=== PATIENT | female | born 1945 | race Caucasian/White ===

== ENCOUNTER 2016-06-18 18:11 | Inpatient (IN) | payer MEDICARE, BC ==
--- NOTE | ~2016-06-18 | EGD ---
EGD REPORT [facility] [address] [address] NAME: JACK ALVAREZ : [birth year] STATUS : ADM IN PAT#: [id number] AGE: 71 ADM/REG DATE : 06/18/16 MR#: [id number] REPORT SERV DATE: 06/30/16 DICTATED BY: BAKARI BECKHAM DATE: 06/30/16 REPORT STATUS : Draft TRANSCRIBED BY: IATARH [facility] DATE: 06/30/16 Endoscopy Center Patient Name: Jack Alvarez Date of : 1945 Attending MD: BAKARI BECKHAM MD Procedure Date No Time: 06/30/2016 Procedure: Upper GI endoscopy Indications: Recent gastrointestinal bleeding Referring MD: ROSAS WILLETT MD Medicines: Monitored Anesthesia Care Complications: No immediate complications. Estimated blood loss: Minimal. Procedure: Pre-Anesthesia Assessment: - ASA Grade Assessment: III - A patient with severe systemic disease. After obtaining informed consent, the endoscope was passed under direct vision. Throughout the procedure, the patient's blood pressure, pulse, and oxygen saturations were monitored continuously. The GIF [id number] was introduced through the mouth, and advanced to the second part of duodenum. The upper GI endoscopy was accomplished without difficulty. The patient tolerated the procedure well. Findings: The examined esophagus was normal. The Z-line was regular and was found 38 cm from the incisors. Multiple medium semi-sessile polyps with no bleeding and no stigmata of recent bleeding were found in the gastric fundus and in the gastric body. The examined duodenum was normal. The cardia and gastric fundus were normal on retroflexion. Impression: - Normal esophagus. - Z-line regular, 38 cm from the incisors. - Multiple gastric polyps. - Normal examined duodenum. - No suggestion of bleeding in the upper GI tract Recommendation: - Return patient to hospital [facility] for ongoing care. - Clear liquid diet today. - Check hemoglobin q 12 hours until stable. Procedure Code(s): --- Professional --- 81027, Esophagogastroduodenoscopy, flexible, transoral; diagnostic, including collection of specimen(s) by EGD REPORT [address] [address] NAME: JACK ALVAREZ : [birth year] STATUS : ADM IN [facility]#: [id number] AGE: 71 ADM/REG DATE : 06/18/16 MR#: [id number] REPORT SERV DATE: 06/30/16 DICTATED BY: BAKARI BECKHAM DATE: 06/30/16 REPORT STATUS : Draft TRANSCRIBED BY: [facility] DATE: 06/30/16 brushing or washing, when performed (separate procedure) Diagnosis Code(s): --- Professional --- K31.7, Polyp of stomach and duodenum K92.2, Gastrointestinal hemorrhage, unspecified CPT copyright 2013 [employer]. All rights reserved. The codes documented in this report are preliminary and upon water treatment plant operator review may be revised to meet current compliance requirements. Bakari Beckham MD BAKARI BECKHAM MD 06/30/2016 2:56 PM This report has been signed electronically. Number of Addenda: 0 Note Initiated On: 06/30/2016 2:38 PM Scope Withdrawal Time 0 hours 0 minutes [address] [place] [id number]
--- NOTE | ~2016-06-18 | DS ---
Discharge Summary [address] [place]. [address] NAME: JACK FAULKNER : 43 STATUS : DIS IN PAT#: [id number] AGE: 71 ADM/REG DATE : 06/18/16 MR#: [id number] REPORT SERV DATE: 07/05/16 DICTATED BY: CIARAN FRENCH DATE: 07/01/16 REPORT STATUS : Draft TRANSCRIBED BY: MODL DATE: 07/01/16 ADMISSION DATE: 06/18/2016 DISCHARGE DATE: 07/01/2016 DISCHARGE DIAGNOSES: 1. Sepsis, present on admission, resolved. 2. 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 3. Mycobacterium chimaera. Treatment initiated during this hospitalization with triple antibiotic therapy. 4. Acute hypoxic respiratory failure, present on admission, now resolved. 5. Uncontrolled hypertension. 6. Chest pain, with suspected ischemic cardiac pain. The patient will get cardiac cath as an outpatient. 7. Acute colonic bleed secondary to angiodysplastic lesion that was treated with argon laser per Dr. Barnes. The patient also had an EGD done that was grossly benign. 8. Acute blood loss anemia secondary to above requiring 2 units of blood transfusions. 9. Stage 4 chronic kidney disease, stable. 10.Possible sick sinus syndrome. 11.Hypothyroidism. 12.Gastroesophageal reflux disease. 13.Splenic artery aneurysm. PROCEDURES: EGD performed on 06/30/2016 was grossly benign without any acute bleeding. For other operations and procedures please refer to interim discharge summary by Dr. Landry Latham. CONSULTS: 1. Dr. Melendez of Nephrology. 2. Dr. Kim of Pulmonology. 3. Dr. Light of GI. 4. Cardiology. HOSPITAL COURSE: This is a 71-year-old lady, who was initially admitted to the hospital with a right upper lobe pneumonia with sepsis. For details, please refer to the excellent H and P by Dr. Rajendra East. Also, for details of this hospital stay, please refer to the interim discharge summary by Dr. Landry Latham. I assumed care of this patient starting 06/29/2016, and by then, the patient's pneumonia and sepsis had resolved. The patient was actually quite stable from respiratory standpoint, and the patient was tolerating the triple antibiotic therapy for Mycobacterium chimaera really well. The patient had been seen by Cardiology for chest pain and by then the plan was for the patient to follow up as an outpatient to have a cardiac cath. The main issue at that point in time was continued GI bleed. The patient has already had a colonoscopy with a large angiodysplastic lesion in the cecum which was fulgurated with argon laser per Dr. Barnes. The patient unfortunately was continuing to have dark stools and thus the patient was taken for an EGD. The EGD was Discharge Summary [place] [address] [place] [address] NAME: JACK FAULKNER : [birth year] STATUS : DIS IN PAT#: [id number] AGE: 71 ADM/REG DATE : 06/18/16 MR#: [id number] REPORT SERV DATE: 07/05/16 DICTATED BY: CIARAN FRENCH DATE: 07/01/16 REPORT STATUS : Draft TRANSCRIBED BY: JEREMIAH DATE: 07/01/16 actually grossly benign, and despite the patient reporting having had black stools, the patient's hemoglobin had remained stable, and actually after the EGD, the patient reported that her black stool was actually going away. The patient was very much eager to be discharged home having had stayed in the hospital for quite a long time. With stable hemoglobin and no further evidence of bleeding, the patient was felt stable from GI standpoint for discharge home. From respiratory standpoint, the patient has been stable, and she has again been tolerating the antibiotic therapy for Mycobacterium chimaera. Cardiology had already signed off with outpatient followup plans, and Nephrology also signed off as the patient has had stable renal function throughout the hospital stay. The patient is now thus being discharged home with close outpatient followup instructions. DISPOSITION: Home. DISCHARGE MEDICATIONS: 1. Synthroid 125 mcg p.o. q.a.m. 2. Lasix 20 mg p.o. q.a.m. 3. Klonopin 1 mg p.o. q.h.s. 4. Prilosec 40 mg p.o. q.a.m. 5. Crestor 10 mg p.o. q.h.s. 6. Trilipix 135 mg p.o. q.h.s. 7. Estrace 0.5 mg p.o. q.a.m. 8. Amitiza 8 mcg p.o. daily and q.h.s. p.r.n. 9. Ultram 50 to 100 mg p.o. q.8 hours p.r.n. 10.Atarax 10 mg p.o. three times daily p.r.n. 11.Sodium bicarb 650 mg p.o. b.i.d. 12.Breo Ellipta 1 puff inhaled q.a.m. 13.CoQ10 50 mg p.o. q.a.m. 14.Vitamin E 400 units p.o. q.a.m. 15.Vitamin C 500 mg p.o. q.a.m. 16.Zinc 50 mg p.o. q.a.m. 17.Niacin 500 mg p.o. q.a.m. 18.Centrum 1 tablet p.o. q.a.m. 19.Garlic chyc-egf-ftxaptg 1000 mg p.o. q.a.m. 20.Green tea extract 1 capsule p.o. q.a.m. 21.Fish oil 2000 mg p.o. b.i.d. 22.Glucosamine and chondroitin tablet 1 tablet p.o. q.a.m. 23.Colace 100 mg p.o. b.i.d. 24.Dulcolax 5 mg p.o. q.a.m. 25.Iron 25 mg p.o. q.a.m. 26.Optics 1 Colon Health 1 capsule p.o. q.a.m. 27.Phenergan with codeine 5 mL p.o. q.6 hours p.r.n. 28.Norvasc 5 mg p.o. b.i.d. as a new medication. 29.Imdur 60 mg p.o. daily as a new medication. 30.Toprol-XL of 75 mg p.o. b.i.d. as a new medication. 31.Hydralazine 100 mg p.o. q.8 hours as a new medication. 32.Nitroglycerin 0.4 mg sublingually as needed as a new medication. 33.Zithromax 500 mg p.o. daily as a new medication. Discharge Summary [place] [address] [facility] [place]. [address] NAME: JACK FAULKNER : 43 STATUS : DIS IN PAT#: [id number] AGE: 71 ADM/REG DATE : 06/18/16 MR#: [id number] REPORT SERV DATE: 07/05/16 DICTATED BY: CIARAN FRENCH DATE: 07/01/16 REPORT STATUS : Draft TRANSCRIBED BY: JEREMIAH DATE: 07/01/16 34.Ethambutol 1600 mg p.o. Tuesday, , and Sundays as a new medication. 35.Rifampin 600 mg p.o. daily as a new medication. FOLLOWUP: 1. Please follow up with the PCP in the next one to two weeks. 2. Please follow up with Pulmonology in the next two to three weeks. 3. Please follow up with GI in the next two to three weeks. 4. Please follow up with Cardiology in the next two to three weeks. 5. Please follow up with Nephrology in the next two to three weeks. A total of 45 minutes spent in coordinating this patient's discharge today. COCO/JEREMIAH Ciaran French MD / [id number] CC: MD Oh Evans M.D.
--- NOTE | ~2016-06-18 | IDS ---
Interim Discharge Summary [facility] [address] [place]. [address] NAME: JACK FAULKNER : 43 STATUS : ADM IN [facility]#: [id number] AGE: 71 ADM/REG DATE : 06/18/16 MR#: [id number] REPORT SERV DATE: 06/28/16 DICTATED BY: KEVIN LATHAM DATE: 06/28/16 REPORT STATUS : Draft TRANSCRIBED BY: MODL DATE: 06/28/16 ADMISSION DATE: 06/18/2016 DISCHARGE DATE: DATE OF INTERIM SUMMARY: 06/28/2016 CURRENT DIAGNOSES: 1. Sepsis, present on admission, resolved. 2. Right upper lobe pneumonia, present on admission, treated, with history of recurrent pneumonias and IgG2 subclass deficiency. 3. Hypoxemic acute respiratory failure, present on admission, resolved. 4. Mycobacterium chimaera, treatment initiated during this hospitalization. 5. Uncontrolled hypertension. 6. Chest pain, suspected ischemic cardiac pain with documented coronary artery disease on CT imaging with negative stress imaging in April of this year and negative echo in June. Cardiac catheterization planned. 7. Suspected drug-drug interaction with rifampin and antihypertensive therapy contributing to uncontrolled hypertension. Discontinuation of carvedilol and replacement with metoprolol. 8. Acute colonic bleed, 06/27/2016. Positive bleeding scan for colonic etiology. Colonoscopy today demonstrating single large angiodysplastic lesion with stigmata of recent bleeding in cecum, fulgurated with argon laser, Dr. Barnes. 9. Previous history of cecal colonic angioectasia bleeding. 10.Acute blood loss anemia, 2-unit transfusion to date. 11.Chronic kidney disease 4, currently stable, with previous left arm shunt. 12.Pauses on high-dose metoprolol, necessitating dose reduction, possible sick sinus syndrome. 13.History of diverticulosis and colon polyps. 14.Anemia of chronic disease. 15.Hypothyroid, on replacement. 16.Gastroesophageal reflux disease. 17.Splenic artery aneurysm. 18.History of ileal bypass, reversed because of recurrent renal stones. 19.Spinal stenosis. 20.Hyperlipoproteinemia. 21.History of transient ischemic attack. OPERATION/PROCEDURES: See above. PRESENT ILLNESS: This is a 71-year-old white female, who was triaged in the emergency room on 06/18/2016, with shortness of breath and cough. In the emergency room, admission vital signs: Blood pressure 211/85, temp 101, pulse 92, O2 saturation 88% on room air. After evaluation in the emergency room, she was thought to have community-acquired pneumonia. She was referred to the Hospitalist Service. She was seen by Dr. Rajendra East and admitted as described on admission history and physical examination. Interim Discharge Summary [address] [address] NAME: JACK FAULKNER : 43 STATUS : ADM IN PAT#: [id number] AGE: 71 ADM/REG DATE : 06/18/16 MR#: [id number] REPORT SERV DATE: 06/28/16 DICTATED BY: KEVIN LATHAM DATE: 06/28/16 REPORT STATUS : Draft TRANSCRIBED BY: JEREMIAH DATE: 06/28/16 ADDITIONAL HISTORY: Per Dr. East. PHYSICAL EXAMINATION: Per Dr. East. ADMISSION LABORATORY: Per Dr. East. HOSPITAL COURSE: She was admitted by Dr. East with: 1. Sepsis. 2. Right upper lobe pneumonia. 3. Acute hypoxemic respiratory failure. 4. CKD 4. 5. Hypertensive urgency. 6. All occurring in the setting of the above-mentioned comorbidities. On admission, cultures were obtained. She was placed on broad-spectrum antimicrobial therapy. Consultation was obtained with Nephrology, Dr. Melendez and Pulmonary, Dr. Kim. Her hospitalist care was by Dr. Fuentes on 06/19/2016, 06/20/2016, and 06/21/2016 and the undersigned on 06/22/2016 through 06/28/2016. Dr. Melendez's impression was stage 4 chronic kidney disease with a non-anion gap metabolic acidosis, and anemia. He thought her renal function was stable and at baseline and that there was no indication for initiation of renal replacement therapy at this time. Minor medication adjustments were made. Dr. Kim noted recurrent respiratory tract infections. He was not certain that this was an acute bacterial process. He noted a bronchoscopy done in April of this year yielded Mycobacterium chimaera, part of the mycobacterium avium complex. He suggested initiating treatments with Zithromax, ethambutol, and rifampin. Consideration of future gammaglobulin replacement was also entertained. On admission, she had also been placed on Rocephin. This was continued for seven days. A procalcitonin level on 06/18/2016, was 2.11 and 0.07 on repeat. Her white blood cell count was 8.9, then 11.6 and was on repeat. Influenza testing was negative. Streptococcal antigen testing negative. Legionella antigen testing negative. A urine culture on admission grew mixed organisms, blood cultures were no growth, and no sputum could be obtained for culture. With antimicrobial therapy and bronchodilators on admission, her sepsis, acute hypoxemic respiratory failure, and acute pneumonic illness resolved. When initially seen by the undersigned on 06/22/2016, she was on day #5 of broad-spectrum antimicrobial therapy. She had family coming into town in 48 hours, and it was felt she likely could be discharged at that time. Interim Discharge Summary [place] [address] [place]. [address] NAME: JACK FAULKNER : 43 STATUS : ADM IN [facility]#: [id number] AGE: 71 ADM/REG DATE : 06/18/16 MR#: [id number] REPORT SERV DATE: 06/28/16 DICTATED BY: KEVIN LATHAM DATE: 06/28/16 REPORT STATUS : Draft TRANSCRIBED BY: JEREMIAH DATE: 06/28/16 Over the next 24 hours, her blood pressure escalated. On 06/24/2016, I discussed with pharmacy whether her rifampin could be accelerating metabolism of some of her medications. There appeared to be a significant potential interaction with carvedilol, and she was switched to metoprolol. Her blood pressure control improved; however, with blood pressure spikes, she developed substernal chest pain. Repeat EKG did not demonstrate any acute abnormalities. Troponin values were 0.05, 0.06, and 0.05. It was noted that she had a negative or low risk stress in April of this year, and an echocardiogram had been done on 06/21/2016, which demonstrated normal left ventricular function at 62% with normal right ventricular function and mild mitral regurgitation. It was also noted that a CT scan of her chest done in 2015 had demonstrated coronary calcification. Cardiology consultation was obtained. She was seen by Dr. Jazlyn Washington. Her pain was felt to be ischemic cardiac pain. Cardiac catheterization was recommended. Her statin dose was intensified. Long-acting nitroglycerin was added in addition to aspirin. She continued to have chest pain. She agreed to cardiac catheterization, recognizing potential risk for worsening renal function and need for hemodialysis. With intensification of her blood pressure regimen, her blood pressure control improved and her chest pain resolved. On 06/27/2016, she developed bloody stools. Her hemoglobin dropped to 7.1. She was transfused. GI consultation was obtained. She was seen by Dr. Angela Light. A bleeding scan was done and demonstrated active bleeding with origin of radiotracer accumulation appearing to be between distal transverse colon and the splenic flexure. Later in the day, her bleeding stopped. Hemoglobin post-transfusion was 8. It was decided to proceed with colonoscopy on 06/28/2016, rather than angiography unless she had recurrent bleeding. Her hemoglobin dropped to 7.9. She was given another unit of blood. She had no further bloody stools. She was prepped for colonoscopy, which was done today with findings as noted above. Current GI recommendation is no aspirin for three to five days with monitoring for recurrent bleeding. Her cardiac cath is on hold for now until she can safely restart antiplatelet therapy. Hospitalist care to be assumed by [address] [place] [address] team on 06/29/2016. DD/MODL Kevin Latham M.D. Interim Discharge Summary [address] [address] NAME: JACK FAULKNER : 43 STATUS : ADM IN [facility]#: [id number] AGE: 71 ADM/REG DATE : 06/18/16 MR#: [id number] REPORT SERV DATE: 06/28/16 DICTATED BY: KEVIN LATHAM DATE: 06/28/16 REPORT STATUS : Draft TRANSCRIBED BY: MODL DATE: 06/28/16 / [id number] CC: Morteza Spencer M.D.
--- NOTE | ~2016-06-18 | CN ---
Consultation Report [facility] [address] [place]. [address] NAME: JACK ALVAREZ : 43 STATUS : ADM IN PAT#: [id number] AGE: 71 ADM/REG DATE : 06/18/16 MR#: [id number] REPORT SERV DATE: 06/19/16 DICTATED BY: IVANA TEE DATE: 06/19/16 REPORT STATUS : Draft TRANSCRIBED BY: MODL DATE: 06/19/16 DATE OF CONSULTATION: 06/19/2016 REASON FOR CONSULT: Chronic kidney disease, stage IV. HISTORY OF PRESENT ILLNESS: Ms. Alvarez is a very pleasant 71-year-old white female, who is followed closely in the office of [facility] by Dr. Rahman. She had a left upper arm AV fistula placed several years ago, but has never been on dialysis. Her baseline creatinine since July 2009 has been 2.5-3.0. Unfortunately, it is the weekend and office records are not available at this time for review. She was admitted yesterday with recurrent right upper lobe pneumonia by imaging. She has had a previous bronchoscopy early this year and is followed closely by Pulmonary for Mycobacterium chimaera. Her procalcitonin was normal. Blood cultures so far are negative. White count is 11.6 thousand and creatinine is 2.7. PAST MEDICAL HISTORY: 1. Chronic kidney disease stage IV, baseline creatinine 2.5-3.0. 2. Hypertension. 3. Hypothyroid. 4. Osteoarthritis with history of right knee replacement. 5. Ileal bypass surgery 1977 with subsequent reversal in 2005 with severe calcium oxalate nephrolithiasis. 6. History of colonic AVMs. 7. Hyperlipidemia. 8. History of TIA. 9. Mycobacterium chimaera as per HPI. MEDICATIONS ON ADMISSION: Vitamin C, Coreg, Klonopin, CoQ10, doxycycline, Trilipix, Breo Ellipta, Lasix 20 mg a day, Atarax, Synthroid 125 mcg daily, Amitiza, omega-3, Prilosec, prednisone 20 mg a day, Crestor 10 mg a day, sodium bicarbonate, vitamin E, tramadol, zinc and multiple over the counter herbal supplements. FAMILY HISTORY: No ESRD. SOCIAL HISTORY: Nonsmoker, , retired, lives in [place]. REVIEW OF SYSTEMS: Significant for recent pneumonia. Avoids OTC NSAIDs, has a left upper arm fistula. PHYSICAL EXAMINATION: VITAL SIGNS: Temperature 98.4, pulse 72, respirations 16, blood pressure 121/58, 92% saturation on 2 liters per nasal cannula, 1230 mL of intake with 500 mL of output. GENERAL: She is a pleasant white female. Awake, alert, oriented, and cooperative with the exam. NEURO: Grossly nonfocal. She is in no distress in her hospital bed, accompanied by Consultation Report [address] [address] NAME: JACK ALVAREZ : 43 STATUS : ADM IN PAT#: [id number] AGE: 71 ADM/REG DATE : 06/18/16 MR#: [id number] REPORT SERV DATE: 06/19/16 DICTATED BY: IVANA TEE DATE: 06/19/16 REPORT STATUS : Draft TRANSCRIBED BY: JEREMIAH DATE: 06/19/16 supportive daughter. HEENT: Sclerae without icterus. Conjunctivae not injected. Oropharynx is clear. No JVD. LUNGS: She has bilateral faint rhonchi, worse on the right. No dyspnea or tachypnea at rest on O2 per nasal cannula. HEART: Regular rate and rhythm. ABDOMEN: Obese, soft, nontender, nondistended. Bowel sounds present throughout without rebound, guarding, peritoneal signs. EXTREMITIES: Show 1+ pitting edema. SKIN: Without rash. Mood and affect are appropriate. MUSCULOSKELETAL: Shows old knee replacements, but no active tenosynovitis or gout. : Deferred. No Jesus in place. Left upper arm fistula, palpable thrill, audible bruit. LABORATORY DATA: Sodium 146, potassium 4.6, bicarbonate 21, anion gap 12, BUN 50, creatinine 2.7, GFR 17 mL/minute, calcium 8.2, magnesium 1.7, phosphorus 3.7, albumin 2.4, troponin 0.05, procalcitonin 0.07. BNP 541. Renal ultrasound in June 2015 showed no obstruction with bilateral stones. Urinalysis shows no blood, trace protein. Chest x-ray showed right upper lobe pneumonia and stress test in April 2016 showed no ischemia. ASSESSMENT AND PLAN: Ms. Alvarez has chronic kidney disease, stage IV, presents with recurrent pneumonia, non-anion gap metabolic acidosis, and anemia. Other medical history is as outlined above. Her renal function is very stable and at baseline for the last several years. There is no acute indication for initiation of renal replacement therapy at this time. Continue protect left arm, which is her dialysis access arm from venipuncture, blood pressure, and lab draws. Increased bicarbonate dose, stop IV fluids. Supportive care. Watch labs. Replace magnesium. Family updated in room. Avoid nephrotoxic medications. Hopefully, renal function remains stable and at baseline during this hospitalization. NC/MODL Ivana Tee M.D. / [id number] CC: Morteza Polk M.D. Joseph Watlington, M.D.
--- NOTE | ~2016-06-18 | CN ---
Consultation Report [facility] [address] [place]. [address] NAME: JACK ALVAREZ : 43 STATUS : ADM IN PAT#: [id number] AGE: 71 ADM/REG DATE : 06/18/16 MR#: [id number] REPORT SERV DATE: 06/27/16 DICTATED BY: ANGELA LIGHT DATE: 06/27/16 REPORT STATUS : Draft TRANSCRIBED BY: MODL DATE: 06/27/16 CONSULTATION DATE OF CONSULTATION: 06/27/2016 REASON FOR EVALUATION: Hematochezia. HISTORY OF PRESENT ILLNESS: Ms. Alvarez is a delightful 71-year-old female with chronic kidney disease. She has a history of GI bleeding with numerous angioectasia's, treated with thermal therapy in the past. She also has known sigmoid diverticulosis and hemorrhoids. Her colon is noteworthy for technical difficulty requiring abdominal counterpressure according to by Dr. Crowley. The patient is currently admitted with chest pain. Angiography has been discussed at some length, however, has been avoided according to the patient's wishes to try to preserve as much kidney function as possible, and to avoid dialysis. She has known three-vessel disease. She has been treated with subcutaneous heparin and aspirin, which are now on hold. At the time I saw the patient, she had had a bloody stool 20 minutes prior. I have followed her and reevaluated throughout the day, with a stat bleeding scan. Preliminary report indicates this as at the proximal transverse colon, and I have reviewed this study. Since returning to her room, she has not had another bowel movement. She has received one unit of packed red blood cells with an appropriate rise in her hemoglobin. She has had no nausea, vomiting, or abdominal pain. PAST MEDICAL HISTORY: 1. Coronary artery disease. 2. Hypertension. 3. Chronic kidney disease. 4. History of colonic angioectasia. 5. Hyperlipidemia. 6. Obesity. 7. History of atypical mycobacterial pneumonia. 8. Hypogammaglobulinemia. 9. Nephrolithiasis. 10.History of urinary tract infection. 11.Hypothyroidism. 12.Osteoarthritis. 13.History of status post ileal bypass in 1977 with reversal in 2005. 14.Status post TIA. MEDICATIONS: Currently include Protonix; Toprol; Imdur; Apresoline; Mycelex; Lipitor; nitroglycerin; Myambutol; Norvasc; Proventil; sodium bicarbonate; Zithromax; Rifadin; Niaspan; Theragran; glucosamine; CoQ10; Dulcolax; Dulera; Synthroid; guaifenesin; Colace; Amitiza; Lofibra; Estrace; and as noted previously, aspirin and heparin, which have now been discontinued. Consultation Report [place] [id number] [facility] [place]. [address] NAME: JACK ALVAREZ : 43 STATUS : ADM IN [facility]#: [id number] AGE: 71 ADM/REG DATE : 06/18/16 MR#: [id number] REPORT SERV DATE: 06/27/16 DICTATED BY: ANGELA LIGHT DATE: 06/27/16 REPORT STATUS : Draft TRANSCRIBED BY: JEREMIAH DATE: 06/27/16 ALLERGIES: TO MORPHINE, ADHESIVES, AND CYMBALTA. SOCIAL HISTORY: Negative for tobacco or alcohol use. FAMILY HISTORY: Noncontributory. PHYSICAL EXAMINATION: GENERAL: Reveals a pleasant, alert, somewhat cushingoid appearing female. VITAL SIGNS: Blood pressure 137/59, temperature 97.8, heart rate 77. SKIN: Scattered telangiectasias. HEENT: No icterus. Oropharynx is moist. NECK: Supple. No adenopathy. CHEST: Clear bilaterally without wheezes. CARDIAC: Regular rate and rhythm. Normal S1 and S2. ABDOMEN: Mildly overweight, soft and nontender. EXTREMITIES: Warm with mild edema. DATA: Sodium 145; potassium 4.2; BUN 29, decreased from 57; creatinine 3.24, increased from 3; magnesium 2.0. Ferritin 118. White blood cell count 7.5; hemoglobin 8, increased from 7.1, with a baseline of 10; platelets 297,000. Pro-time 15, INR 1.2, PTT 25. Imaging has included the bleeding scan indicated above. She has had a CT scan of the chest, which suggests improvement in pneumonia. IMPRESSION: 1. Gastrointestinal bleeding, with painless hematochezia suggesting angioectasia or diverticular source. Given localization on bleeding scan, though imperfect, suspect this is due to recurrent right colonic angioectasia. Unfortunately, this has occurred in the setting of significant chronic kidney disease, and IV contrast would likely pose significant further risk in this regard, which she wishes to avoid. 2. Chronic anemia. RECOMMENDATION: 1. After discussion with the patient, and with her primary doctor, I recommend that we allow opportunity for bowel preparation and attempt at colonoscopic treatment. Should she have ongoing or uncontrolled bleeding, at that juncture would move ahead with angiogram, with its attendant risks. I have a call in to Interventional Radiology to discuss the situation with them should this event occur. 2. Clear liquids. 3. Discontinue aspirin and heparin. 4. Bowel preparation orders written. Thank you for asking me to participate in her management. Including followup, her consultation took over an hour. Consultation Report [address] [place]. [address] NAME: JACK ALVAREZ : 43 STATUS : ADM IN PAT#: [id number] AGE: 71 ADM/REG DATE : 06/18/16 MR#: [id number] REPORT SERV DATE: 06/27/16 DICTATED BY: ANGELA LIGHT DATE: 06/27/16 REPORT STATUS : Draft TRANSCRIBED BY: JEREMIAH DATE: 06/27/16 RONNIE/JEREMIAH Angela Light M.D. / [id number] CC: Morteza Spencer M.D. Glenny Crowley III, M.D. , [facility] Morteza Powers M.D.
--- NOTE | ~2016-06-18 | CN ---
Consultation Report [facility] [address] [place]. [address] NAME: JACK ALVAREZ : 43 STATUS : ADM IN PAT#: [id number] AGE: 71 ADM/REG DATE : 06/18/16 MR#: [id number] REPORT SERV DATE: 06/24/16 DICTATED BY: DATE: REPORT STATUS : Draft TRANSCRIBED BY: MODL DATE: 06/24/16 DATE OF CONSULTATION: 06/24/2016 CHIEF COMPLAINT/REASON FOR CONSULTATION: Chest pain. HISTORY OF PRESENT ILLNESS: Ms. Alvarez is a very pleasant 71-year-old female with a known history of chronic kidney disease, stage 4, hypertension, hyperlipidemia, hypothyroidism, who was admitted to hospital with recurrent pneumonia of the right upper lobe. It has been determined to be atypical mycobacterium, and the patient will require a long-term rifampin therapy. Despite treatment, she continues to have chest pain. She notes that her chest pain is in the center of her chest. It feels like a saber going through her chest and it also feels tight. She states that what comes in is 12/10 in intensity. She feels like this comes on first and then her blood pressure goes up. She denies increased shortness of breath or radiation to her arm, jaw, or back. She states that it is intermittent for her and is scary when it occurs. She denies diaphoresis or nausea in association with her symptoms. PAST MEDICAL HISTORY: 1. Chronic kidney disease, stage 4, followed by [facility]. 2. Hypertension. 3. Hypothyroidism. 4. Osteoarthritis. 5. Ileal bypass surgery in 1977 with subsequent reversal in 2005. 6. Colonic AVMs. 7. Hyperlipidemia. 8. Mycobacterium chimaera. 9. History of TIA. SOCIAL HISTORY: The patient denies tobacco, alcohol, or extracurricular drugs. She is . Her was previously cared for by Dr. Aldridge of our group. ALLERGIES: SILK TAPE. NO KNOWN DRUG ALLERGIES. FAMILY HISTORY: Significant for coronary artery disease in her mother who at 74 and a father who at the age of 57. REVIEW OF SYSTEMS: All systems reviewed and is negative except for dictated in the HPI. PHYSICAL EXAMINATION: VITAL SIGNS: Temperature is 97.5, pulse is 74 to 86, respirations 18, and oxygen saturation is 90% on room air. Blood pressures range between 135/60 to 185/70. Weight is 85 kg. GENERAL: Ms. Alvarez is a 71-year-old female. Her face is plethoric. She is in no distress. NECK: I could not appreciate jugular venous distention or carotid bruits. HEART: Regular rate and rhythm. Soft S1, S2. There are no murmurs, rubs, or gallops. Consultation Report [address] [address] NAME: JACK ALVAREZ : 43 STATUS : ADM IN [facility]#: [id number] AGE: 71 ADM/REG DATE : 06/18/16 MR#: [id number] REPORT SERV DATE: 06/24/16 DICTATED BY: DATE: REPORT STATUS : Draft TRANSCRIBED BY: MODL DATE: 06/24/16 LUNGS: Clear to auscultation in all zamorano. ABDOMEN: Obese and nontender. EXTREMITIES: There is a left upper extremity fistula present. There is no lower extremity edema. No clubbing or cyanosis of the digits. NEUROLOGIC: The patient is a good historian. I could not appreciate focal neurologic deficits. LABORATORY DATA: Laboratory results note a hemoglobin of 8 and hematocrit of 24.9, a white blood cell count of 5.3, and a platelet count of 204. Sodium 145, potassium 4.1, BUN 30, creatinine 2.97, glucose is 155, albumin is 2.2. AST 18, ALT 19. Troponin is 0.05. CT examination performed on 02/23/2016, noted that the patient had triple-vessel atherosclerotic heart disease. It is unclear if this was obstructive or not from the noncontrast CT. EKG performed this morning demonstrated voltage criteria for left ventricular hypertrophy and left axis deviation. There are no ischemic ST-T segment changes. Myocardial perfusion stress test performed on 04/09/2016, demonstrated normal left ventricular systolic function and no evidence of ischemia. It was a low risk stress test. Echocardiogram performed on 06/21/2016, demonstrated normal left ventricular systolic function with an ejection fraction of 62%. There is mild mitral regurgitation noted. Laboratory results demonstrated a troponin of 0.05 in the setting of a CPK of 39, MB of 1.3, BUN of 30, and creatinine of 2.97. IMPRESSION REPORT AND PLAN: 1. Chest pain with a negative stress test on 02/2017 and a normal left ventricular systolic function on echocardiogram, 06/2016. 2. Three-vessel atherosclerotic disease noted on CT examination performed on 02/23/2016. 3. Hypertension. 4. Chronic kidney disease. 5. Atypical mycobacterial pneumonia, recurrent. 6. Immunodeficiency. 7. Anemia. 8. Hyperlipidemia. 9. Obesity. RECOMMENDATIONS: 1. I discussed the risks, benefits, and alternatives of cardiac catheterization with the patient including progressive renal disease, heart attack, stroke, , bleeding, and pain. I discussed this versus medical management, and the patient would like to avoid hemodialysis, and she declines invasive evaluation at this visit. She would like a trial of up titrating her medical management. 2. We would check fasting lipid panel. 3. Increase her to high-intensity statin at 40 mg p.o. daily. 4. Stop carvedilol as it may interfere with her rifampin therapy and switch to metoprolol succinate. We will start with a trial of 100 mg once per day. 5. No DOLORES inhibitor due to the patient's renal insufficiency. Consultation Report [address] [place]. [address] NAME: JACK ALVAREZ : 43 STATUS : ADM IN PAT#: [id number] AGE: 71 ADM/REG DATE : 06/18/16 MR#: [id number] REPORT SERV DATE: 06/24/16 DICTATED BY: DATE: REPORT STATUS : Draft TRANSCRIBED BY: MODL DATE: 06/24/16 6. Continue amlodipine at 5 mg twice per day. 7. We would start long-acting nitroglycerin, 30 mg of Imdur once per day. 8. I gave the patient a prescription for nitroglycerin and instructed her on its use. 9. We will arrange for close Cardiology followup to evaluate for progressive disease. 10.If she continues to have progressive evidence of chest pain, then she said she would consider an invasive evaluation for symptom management. It has been my pleasure to participate in her care. [facility]/MODRadha Jazlyn Washington M.D. / [id number] CC: Morteza Spencer Goldman, M.D.
--- NOTE | ~2016-06-18 | EGD ---
EGD REPORT [facility] [address] [address] NAME: JACK ALVAREZ : 43 STATUS : ADM IN PAT#: [id number] AGE: 71 ADM/REG DATE : 06/18/16 MR#: [id number] REPORT SERV DATE: 06/28/16 DICTATED BY: BAKARI BECKHAM DATE: 06/28/16 REPORT STATUS : Draft TRANSCRIBED BY: [facility] DATE: 06/28/16 [facility] Patient Name: Jack Avlarez Date of : 1945 Attending MD: BAKARI BECKHAM MD Procedure Date No Time: 06/28/2016 Procedure: Colonoscopy Indications: Hematochezia Referring MD: ROSAS WILLETT MD, ZACH TURONG III, MD Medicines: Monitored Anesthesia Care Complications: No immediate complications. Estimated blood loss: Minimal. Procedure: Pre-Anesthesia Assessment: - ASA Grade Assessment: III - A patient with severe systemic disease. After I obtained informed consent, the scope was passed under direct vision. Throughout the procedure, the patient's blood pressure, pulse, and oxygen saturations were monitored continuously. The CF [id number] was introduced through the anus and advanced to the cecum, identified by appendiceal orifice and ileocecal valve. The colonoscopy was technically difficult and complex due to poor bowel prep, significant looping and a tortuous colon. The patient tolerated the procedure well. The quality of the bowel preparation was fair. Findings: The perianal and digital rectal examinations were normal. Pertinent negatives include no palpable rectal lesions. A single large angiodysplastic lesion with stigmata of recent bleeding was found in the cecum. Fulguration to stop the bleeding by argon plasma at 0.8 liters/minute and 20 sanchez was successful. Estimated blood loss was minimal. There is no endoscopic evidence of bleeding, diverticula, inflammation, mass or ulcerations in the entire colon. The exam was otherwise without abnormality on direct and retroflexion views. Impression: - A single recently bleeding colonic angiodysplastic lesion. Treated by fulguration. - The examination was otherwise normal on direct and retroflexion views. Recommendation: - Return patient to hospital [facility] for ongoing care. - Clear liquid diet. EGD REPORT [address] [address] NAME: JACK ALVAREZ : 43 STATUS : ADM IN [facility]#: [id number] AGE: 71 ADM/REG DATE : 06/18/16 MR#: [id number] REPORT SERV DATE: 06/28/16 DICTATED BY: BAKARI BECKHAM DATE: 06/28/16 REPORT STATUS : Draft TRANSCRIBED BY: [employer] DATE: 06/28/16 - Check hemoglobin q 12 hours until stable. Procedure Code(s): --- Professional --- 57206, Colonoscopy, flexible, proximal to splenic flexure; with control of bleeding (eg, injection, bipolar cautery, unipolar cautery, laser, heater probe, stapler, plasma patcher helper) Diagnosis Code(s): --- Professional --- K55.21, Angiodysplasia of colon with hemorrhage K92.1, Melena CPT copyright 2013 [employer]. All rights reserved. The codes documented in this report are preliminary and upon ear specialist review may be revised to meet current compliance requirements. Bakari Beckham MD BAKARI BECKHAM MD 06/28/2016 8:52 AM This report has been signed electronically. Number of Addenda: 0 Note Initiated On: 06/28/2016 7:03 AM Scope Withdrawal Time 0 hours 0 minutes 0 seconds [address] [address]
--- NOTE | ~2016-06-18 | HP ---
History And Physical [place] [id number] [place]. [address] NAME: JACK FAULKNER : 43 STATUS : ADM IN [facility]#: [id number] AGE: 71 ADM/REG DATE : 06/18/16 MR#: [id number] REPORT SERV DATE: 06/19/16 DICTATED BY: SOTERO DANIEL DATE: 06/18/16 REPORT STATUS : Draft TRANSCRIBED BY: MODL DATE: 06/18/16 DATE OF ADMISSION: 06/18/2016 CHIEF COMPLAINT: A 71-year-old female presenting with rapid onset of cough, shortness of breath, chest pain, and fever with evidence of pneumonia. HISTORY OF PRESENT ILLNESS: The patient's history was obtained through careful interview with the patient and daughter coupled with review of [employer] [facility] [employer] medical records. The patient's respiratory problem has really began in 2015 around the same time that her . She developed pneumonia and then after the pneumonia cleared, she developed recurrent bronchitis and abnormalities on her chest x-ray. In fact, the patient had presented on 04/07/2016 for bronchoscopy under the care Dr. Kim, although the results of this seemed to be negative. The patient was actually feeling better over the last month or so when this afternoon she was getting ready to go out to play bingo and had a rapid onset of shortness of breath characterized by dyspnea on exertion and a cough productive of thick de oliveira-green sputum. There is no blood in her sputum. She describes chest discomfort in the middle of her chest, radiating to the bases of her chest bilaterally, exacerbated by coughing, a sharp quality, 8/10 in severity. She states "I just feel yucky." She has had nausea, but no vomiting. She has felt lightheaded, had subjective fevers and chills, and a fever of 101.0 here. She describes headache, but no sore throat. No rash. No weight loss. No diarrhea. REVIEW OF SYSTEMS: Otherwise, a 14-point review of systems was obtained and was negative. PAST MEDICAL HISTORY: 1. Pneumonia. 2. Urinary tract infection with sepsis and pyelonephritis. 3. Chronic kidney disease, stage IV with baseline creatinine of 2.5 to 3.0, seen by Dr. Rahman. 4. Nephrolithiasis, seen by Dr. Sahaj. 5. Transient ischemic attack. 6. Mitral valve prolapse. 7. Elevated cholesterol. 8. Hypertension. 9. 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 Glenny Crowley. 10.Hypothyroidism. History And Physical [facility] [address] [place]. [address] NAME: JACK FAULKNER : 43 STATUS : ADM IN PAT#: [id number] AGE: 71 ADM/REG DATE : 06/18/16 MR#: [id number] REPORT SERV DATE: 06/19/16 DICTATED BY: SOTERO DANIEL DATE: 06/18/16 REPORT STATUS : Draft TRANSCRIBED BY: JEREMIAH DATE: 06/18/16 11.Spinal stenosis. 12.Bronchoscopy in April [address] Kim. 13.Gastroesophageal reflux disorder with hiatal hernia and peptic ulcer disease. 14.Splenic aneurysm, 1.6 cm. PAST SURGICAL HISTORY: 1. Appendectomy. 2. Cholecystectomy. 3. Gastric bypass surgery. 4. AV fistula placement, but then reversal. 5. Hysterectomy with oophorectomy. 6. A left-sided parathyroidectomy. 7. Bilateral knee surgeries. ALLERGIES: MORPHINE. SOCIAL HISTORY: Used to smoke in college, but has quit remotely. No alcohol use. She used to drink socially, but has quit. She is a retired nurse servicenow administrator. Became a in September 2015. She lives alone now, has two daughters, one who lives locally and one who lives in [place]. FAMILY HISTORY: Coronary artery disease. CURRENT MEDICATIONS: Include vitamin C; Dulcolax; Coreg 12.5 mg p.o. b.i.d.; Klonopin 1 mg at bedtime; coenzyme Q10; Colace 100 mg p.o. b.i.d.; doxycycline 100 mg p.o. b.i.d.; estradiol; Trilipix 135 mg p.o. daily; Breo Ellipta; Lasix 20 mg p.o. daily; Glucophage; hydroxyzine; Synthroid 125 mcg p.o. daily; Amitiza 8 mcg p.o. daily; multivitamin; Niacin 500 mg p.o. daily; fish oil 2000 mg p.o. b.i.d.; Prilosec 40 mg daily; prednisone 20 mg p.o. daily, completed on 06/15/2016; Crestor 10 mg p.o. daily; sodium bicarbonate 650 mg p.o. b.i.d.; vitamin E; tramadol p.r.n.; various supplements including IB-candido, zinc, garlic, green tea, iron, [employer], resveratrol; p.r.n. Phenergan with codeine. PHYSICAL EXAMINATION: VITAL SIGNS: Temperature 101.0, pulse 92, blood pressure 211/86, respiratory rate 24, and O2 saturation 88% on room air. GENERAL: An ill-appearing female, in evidence of distress secondary to shortness of breath. HEENT: Pupils are equal, round, and reactive to light. No conjunctival pallor. No scleral icterus. Nares are patent. Oropharynx is clear of obstruction. Mildly dry mucous membranes. NECK: Trachea midline. No thyromegaly. LYMPH: No cervical lymphadenopathy. No supraclavicular lymphadenopathy. RESPIRATORY: I do not appreciate focal egophony by exam. The patient has scattered rhonchi. No wheezes. No rales. A labored respiratory effort. CARDIOVASCULAR: Regular rate and rhythm. No murmurs, rubs, or gallops. No extremity edema is appreciated. ABDOMEN: Soft, nontender, and nondistended. Normal bowel sounds auscultated throughout. History And Physical [address] [address] NAME: JACK FAULKNER : 43 STATUS : ADM IN [facility]#: [id number] AGE: 71 ADM/REG DATE : 06/18/16 MR#: [id number] REPORT SERV DATE: 06/19/16 DICTATED BY: SOTERO DANIEL DATE: 06/18/16 REPORT STATUS : Draft TRANSCRIBED BY: MODL DATE: 06/18/16 No hepatosplenomegaly. DERMATOLOGIC: Warm and dry extremities. No pallor. No cyanosis. PSYCHIATRIC: Normal affect. Good mood. Alert and oriented x3. LABORATORY DATA: White blood cell count 8.9, hemoglobin 9.5, hematocrit 29.6, and platelets 245. Sodium 146, potassium 4.3, chloride 109, bicarb 23, BUN 57, creatinine 2.92, glucose 141, lipase 273, albumin 3.1, lactic acid 1.2. INR 1.1. Influenza negative. Urinalysis shows no evidence of infection, but positive protein. STUDIES: 1. Chest x-ray by my own evaluation shows a large area in the right upper lung that has hazy infiltrate appearance, new compared to old x-rays. 2. EKG by my own evaluation shows sinus rhythm, 95 beats per minute, premature atrial complexes, left axis deviation. 3. Review of the stress test done on 04/09/2016 was negative. ASSESSMENT AND PLAN: 1. Sepsis with positive criteria that includes a pulse greater than 90, tachypnea, fever of 101.0, pneumonia. I noted a normal white blood cell count currently and a normal lactic acid. Check blood cultures. Place on IV antibiotics. 2. Right upper lung pneumonia. Check blood cultures. Check sputum cultures. Place on IV antibiotics. Consult Dr. Kim, Pulmonary. 3. Hypoxic respiratory failure. Provide supportive care. 4. Chronic kidney disease, stage IV. 5. Hypertensive urgency. P.r.n. medications. [facility]/MODL Sotero Daniel M.D. / [id number] CC: MD Oh Evans M.D. Carlos Baleeiro, M.D.
--- NOTE | ~2016-06-18 | CN ---
Consultation Report [facility] [address] [place]. [address] NAME: JACK ALVAREZ : 43 STATUS : ADM IN PAT#: [id number] AGE: 71 ADM/REG DATE : 06/18/16 MR#: [id number] REPORT SERV DATE: 06/20/16 DICTATED BY: JACQUELINE FIELDS DATE: 06/19/16 REPORT STATUS : Draft TRANSCRIBED BY: MODL DATE: 06/19/16 DATE OF CONSULTATION: Thank you for the opportunity to consult on this patient. HISTORY OF PRESENT ILLNESS: Ms Alvarez is established in our office where we have been working her up for her recurrent respiratory tract infections. She had been doing fairly well, but yesterday developed significant dyspnea which was fairly sudden with worsening cough and had a new right upper lobe pulmonary infiltrate. This will be discussed below. Since admission, she has actually felt slightly better. She still has significant cough, dyspnea, fatigue though that has been slightly improved. 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 She has chronic kidney disease and sees Dr. Rahman. She has history of urinary tract infections, nephrolithiasis, previous pneumococcal, severe pneumonia, hypothyroidism, previous GI bleed. SOCIAL HISTORY: Significant for very brief smoking history in college, but no significant persistent smoking history. No alcohol abuse or illicit drug use. FAMILY HISTORY: Noncontributory to this acute presentation. PHYSICAL EXAMINATION: GENERAL: She is awake and alert, appearing fatigued, chronically ill, but in no acute respiratory distress. VITAL SIGNS: Stable. HEENT: Normocephalic and atraumatic. NECK: Supple. No lymphadenopathy. No JVD. CHEST: Symmetric with good expansion bilaterally. LUNGS: Has distant breath sounds and occasional rhonchi, but otherwise clear. CARDIOVASCULAR: She has S1 and S2, which are regular rate and rhythm. ABDOMEN: Benign. EXTREMITIES: She has no edema, no clubbing, no cyanosis. ASSESSMENT AND PLAN: Recurrent respiratory tract infections. The patient has a history of recurrent respiratory tract infections some of which have been somewhat atypical. For instance, her chest radiograph from yesterday is already better today suggesting mucous plugging or inflammation or at least non-typical bacterial infection. Furthermore, her procalcitonin on arrival was not elevated again confirming this is not likely bacterial in origin and certainly not recurrence of her severe pneumococcal pneumonia. 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 We believe that she meets diagnostic criteria for therapy because of the recurrence of her symptoms, fleeting infiltrates, hypogammaglobulinemia, and isolation of the mycobacteria in a deep bronchoscopic sample. We Consultation Report [address] [address] NAME: JACK ALVAREZ : 43 STATUS : ADM IN PAT#: [id number] AGE: 71 ADM/REG DATE : 06/18/16 MR#: [id number] REPORT SERV DATE: 06/20/16 DICTATED BY: JACQUELINE FIELDS DATE: 06/19/16 REPORT STATUS : Draft TRANSCRIBED BY: JEREMIAH DATE: 06/19/16 will start her on azithromycin, rifampin, and ethambutol. We discussed side effects that are observed and the need for outpatient ophthalmologic monitoring with the patient and her daughters. In the meantime, we will continue to monitor her closely, and if her recurrent respiratory tract infections persist, we will consider initiation of immunoglobulin replacement therapy. Finally, as a side note, since she has this fleeting infiltrates, the patient did have a parrot in the house that has since been relocated, so we will not pursue further invasive diagnosis at this time. We appreciate the opportunity to participate in her care with you. Please not hesitate to contact me if I could be of any further assistance. ABDIRIZAK/JEREMIAH Jacqueline Fields M.D. / [id number] CC: Morteza Polk M.D.
[~2016-06-18 18:11] MED LIST: ACAI BERRY EXTRACT; AMITIZA8 MCG PO; ASAB PO; AT10 PO; BIST PO; BL CHROMIUM200 MCG OR; BREO ELLIPTA INH; CARNITINE OR; CEFT5 PO; CENTRUM PO; CENTRUM TAB1 TAB PO; CITRACAL PO; CO Q-10100 MG PO; COQ-10 PO; COQ-1010 MG OR; COREG12 PO; COREG6 PO; COSAMIN DS1 TAB PO; CRESTOR10 PO; DEXEL PO; DSS PO; DSS50 PO; ESTRACE0.5 MG PO; ESTRADIOL TD; FISH-EPA1000 MG PO; GARLIC; GARLIC PO; GLUCCHONDR PO; GRAPE SEED EXTRACT PO; GREEN TEA EXTRACT; GREEN TEA EXTRACT PO; GREEN TEA PO; HUMI PO; IBGARD PO; IRON BISGLYCINATE PO; KLONO1 PO; L-CARNITINE250 M1 OR; L-CARNITINE500 M1 OR; L20 PO; LEVAQUIN750 MG PO; LEVSINTAB PO; LOFIBRA134 MG PO; LUTEIN1 CAP OR; MEGA MULTI OR; MUCINEX600 MG PO; MULTIVIT/MIN PO; NAP500 PO; NEXIUM40 PO; NIACIN 500 PO; ORAZINC110 MG PO; OTC IRON PO; PARSLEY PO; PHILLIPS PROBIOTIC PO; PRILOSEC40 MG PO; PROAIR HFA INH; REG5 PO; RESERVATOL; RESVERATROL PO; SELENIUM; SELENIUM200 MC1 PO; SODBICAR10 PO; SYN125 PO; THEREMS H OR; TRILIPIX135 MG PO; TRIPLE FLE2 OR; TRIPLE FLEX PO; TUMERIC PO; TYLENOL PM PO; ULTRAM50 PO; VIT B-SIX 50 MG50 MG PO; VITAMIN B PO; VITAMIN D1000 UNI1 PO; VITAMIN D31000 UNIT PO; VITC500 PO; VITE PO; VIVELLE-DOT0.025 MG TOP; VIVELLE-DOT0.0375 MG TOP; ZINC GLUCON50 MG PO; ZINC GLUCONATE; ZINC PO; ZINC220C PO; ZOL100 PO
[2016-06-18 18:47] LABS: BASOPHILS 0 %; EOSINOPHILS 1.5 %; EOSINOPHILS ABSOLUTE 0.13 10/3/uL (0.0-0.53); ER CBC TAT 0 Hrs 05 Mins; HEMATOCRIT 29.6 % (36.0-48.0); HEMOGLOBIN 9.5 g/dL (12.0-16.0); IMMATURE GRANULOCYTES 0.4 %; IMMATURE GRANULOCYTES ABSOLUTE 0.04 10/3/uL (0.0-0.11); LYMPHOCYTES 6.5 %; LYMPHOCYTES ABSOLUTE 0.58 10/3/uL (0.67-4.30); MANUAL DIFF NO %; MEAN CORPUS HGB CONC 32.1 g/dL (32.0-36.0); MEAN CORPUSCULAR HEMOGLOB 30.5 pg (26.0-34.0); MEAN CORPUSCULAR VOLUME 95.2 fL (80-100); MEAN PLATELET VOLUME 9.1 fL (9.2-13.0); MONOCYTES ABSOLUTE 0.53 10/3/uL (0.21-1.20); NEUTROPHILS 85.6 %; NEUTROPHILS ABSOLUTE 7.62 10/3/uL (2.02-8.40); PLATELET COUNT 245 10/3/uL (150-400); RBC DISTRIBUTION WIDTH 15.7 % (12.0-16.0); RED CELL COUNT 3.11 10/6/uL (4.0-5.6); WHITE BLOOD CELLS 8.9 10/3/uL (4.5-10.5)
[2016-06-18 18:57] LABS: ASCORBIC ACID (UR NOT ORDER) NEG (NEG); BILIRUBIN, URINE NEGATIVE (NEG); ER URINALYSIS TAT 0 Hrs 10 Mins; KETONE, URINE NEGATIVE (NEG); LEUKOCYTE ESTERASE(NOT OR SMALL (NEG); NITRITE (URINE) NEG (NEG); WBC (NOT ORDERED) (RFLEX) 5 (0-5)
[2016-06-18 18:57] LABS: INTERNATIONAL NORMAL RATI 1.1 UNITS (-); PARTIAL THROMBO TIME 24.3 SEC (22.5-37.2)
[2016-06-18 19:04] LABS: CALCIUM, SERUM 8.7 MG/DL (8.5-10.4); CHLORIDE, SERUM 109 MMOL/L (96-112); CO2 (CARBON DIOXIDE) 23 MMOL/L (24-34); CREATININE 2.92 MG/DL (0.55-1.02); GFR AFRICAN AMERICAN 18 ML/MIN (>=60); GFR NON AFRICAN AMERICAN 15 ML/MIN (>=60); GLUCOSE, SERUM 141 MG/DL (60-99); LACTATE 1.2 MMOL/L (0.3-2.4); POTASSIUM, SERUM 4.3 MMOL/L (3.5-5.3); SGOT(AST) 16 U/L (5-40); SGPT(ALT) 27 U/L (5-65); SODIUM, SERUM 146 MMOL/L (135-148); TOTAL BILIRUBIN 0.3 MG/DL (0-1.2); TOTAL PROTEIN 6.3 G/DL (6.0-8.5)
[2016-06-18 19:06] LABS: ALBUMIN 3.1 G/DL (3.5-5.0); ALKALINE PHOSPHATASE 42 U/L (45-117); BUN (BLOOD UREA NITROGEN) 57 MG/DL (6-23); GLOBULIN 3.2 G/DL (2.5-4.1)
[2016-06-18 19:51] LABS: INFLUENZA A SCREEN NEGATIVE (NEGATIVE); INFLUENZA B SCREEN NEGATIVE (NEGATIVE)
[2016-06-18 19:54] LABS: PROCALCITONIN 0.07 ng/mL (<0.5)
[2016-06-18] MEDS ORDERED: L20 PO (20:22)
[2016-06-18] MEDS ORDERED: COREG12 PO (20:22)
[2016-06-18] MEDS ORDERED: SYN125 PO (20:22)
[2016-06-18] MEDS ORDERED: CRESTOR10 PO (20:23)
[2016-06-18] MEDS ORDERED: KLONO1 PO (20:23)
[2016-06-18] MEDS ORDERED: PRILOSEC40 MG PO (20:23)
[2016-06-18] MEDS ORDERED: ESTRACE0.5 MG PO (20:24)
[2016-06-18] MEDS ORDERED: AMITIZA8 MCG PO ×2 (20:24)
[2016-06-18] MEDS ORDERED: TRILIPIX135 MG PO (20:24)
[2016-06-18] MEDS ORDERED: ULTRAM50 PO (20:25)
[2016-06-18] MEDS ORDERED: [UNRECOGNIZED DRUG - OTHER] PO (20:26)
[2016-06-18] MEDS ORDERED: SODBICAR10 PO (20:26)
[2016-06-18] MEDS ORDERED: AT10 PO (20:26)
[2016-06-18] MEDS ORDERED: BREO ELLIPTA INH (20:26)
[2016-06-18] MEDS ORDERED: CO Q-1050 MG PO (20:27)
[2016-06-18] MEDS ORDERED: VITE PO (20:27)
[2016-06-18] MEDS ORDERED: NIACIN 500 PO (20:28)
[2016-06-18] MEDS ORDERED: ZINC 50MG OTC PO (20:28)
[2016-06-18] MEDS ORDERED: VITC500 PO (20:28)
[2016-06-18] MEDS ORDERED: CENTRUM PO (20:29)
[2016-06-18] MEDS ORDERED: FISH-EPA1000 MG PO (20:29)
[2016-06-18] MEDS ORDERED: GREEN TEA EXTRACT PO (20:29)
[2016-06-18] MEDS ORDERED: GARLIC 1000 MG PO (20:29)
[2016-06-18] MEDS ORDERED: DSS PO (20:30)
[2016-06-18] MEDS ORDERED: GLUCCHONDR PO (20:30)
[2016-06-18] MEDS ORDERED: BIST PO (20:30)
[2016-06-18] MEDS ORDERED: PHILLIP COLON HEALTH PO (20:31)
[2016-06-18] MEDS ORDERED: IRON BISGLYCINATE PO (20:31)
[2016-06-18] MEDS ORDERED: [UNRECOGNIZED DRUG - OTHER] PO (20:32)
[2016-06-18] MEDS ORDERED: MONODOX100 MG PO (20:36)
[2016-06-18] MEDS ORDERED: P20 PO (20:37)
[2016-06-18] MEDS ORDERED: PHENERGAN W/CODEINE PO (20:38)
[2016-06-19 07:00] LABS: BASOPHILS 0 %; EOSINOPHILS ABSOLUTE 0.12 10/3/uL (0.0-0.53); HEMATOCRIT 26.7 % (36.0-48.0); HEMOGLOBIN 8.7 g/dL (12.0-16.0); IMMATURE GRANULOCYTES 0.4 %; IMMATURE GRANULOCYTES ABSOLUTE 0.05 10/3/uL (0.0-0.11); LYMPHOCYTES ABSOLUTE 0.81 10/3/uL (0.67-4.30); MEAN CORPUS HGB CONC 32.6 g/dL (32.0-36.0); MEAN PLATELET VOLUME 9.3 fL (9.2-13.0); MONOCYTES 7.5 %; MONOCYTES ABSOLUTE 0.87 10/3/uL (0.21-1.20); NEUTROPHILS 84.1 %; NEUTROPHILS ABSOLUTE 9.76 10/3/uL (2.02-8.40); PLATELET COUNT 204 10/3/uL (150-400); RBC DISTRIBUTION WIDTH 16.1 % (12.0-16.0); RED CELL COUNT 2.81 10/6/uL (4.0-5.6); WHITE BLOOD CELLS 11.6 10/3/uL (4.5-10.5)
[2016-06-19 07:04] LABS: MANUAL DIFF NO %
[2016-06-19 07:06] LABS: INTERNATIONAL NORMAL RATI 1.2 UNITS (-); PARTIAL THROMBO TIME 25.2 SEC (22.5-37.2)
[2016-06-19 07:26] LABS: ALKALINE PHOSPHATASE 34 U/L (45-117); CALCIUM, SERUM 8.2 MG/DL (8.5-10.4); CHLORIDE, SERUM 113 MMOL/L (96-112); CO2 (CARBON DIOXIDE) 21 MMOL/L (24-34); CREATININE 2.71 MG/DL (0.55-1.02); GFR AFRICAN AMERICAN 20 ML/MIN (>=60); GFR NON AFRICAN AMERICAN 17 ML/MIN (>=60); GLUCOSE, SERUM 113 MG/DL (60-99); PHOSPHORUS, SERUM 3.7 MG/DL (2.5-4.5); POTASSIUM, SERUM 4.6 MMOL/L (3.5-5.3); SGOT(AST) 15 U/L (5-40); SGPT(ALT) 20 U/L (5-65); SODIUM, SERUM 146 MMOL/L (135-148); TOTAL BILIRUBIN 0.4 MG/DL (0-1.2); TOTAL PROTEIN 5.4 G/DL (6.0-8.5)
[2016-06-19 07:39] LABS: A/G RATIO 0.8 (0.7-1.9); ALBUMIN 2.4 G/DL (3.5-5.0); BUN (BLOOD UREA NITROGEN) 50 MG/DL (6-23); TROPONIN I 0.05 NG/ML (<0.05)
[2016-06-20 07:07] LABS: BASOPHILS 0.1 %; BASOPHILS ABSOLUTE 0.01 10/3/uL (0.0-0.16); EOSINOPHILS 2.7 %; EOSINOPHILS ABSOLUTE 0.19 10/3/uL (0.0-0.53); HEMATOCRIT 26.1 % (36.0-48.0); HEMOGLOBIN 8.6 g/dL (12.0-16.0); IMMATURE GRANULOCYTES 0.4 %; IMMATURE GRANULOCYTES ABSOLUTE 0.03 10/3/uL (0.0-0.11); LYMPHOCYTES 8.3 %; LYMPHOCYTES ABSOLUTE 0.59 10/3/uL (0.67-4.30); MEAN CORPUSCULAR HEMOGLOB 31.4 pg (26.0-34.0); MEAN CORPUSCULAR VOLUME 95.3 fL (80-100); MEAN PLATELET VOLUME 9.8 fL (9.2-13.0); MONOCYTES 8.2 %; MONOCYTES ABSOLUTE 0.58 10/3/uL (0.21-1.20); NEUTROPHILS 80.3 %; PLATELET COUNT 183 10/3/uL (150-400); RBC DISTRIBUTION WIDTH 15.9 % (12.0-16.0); RED CELL COUNT 2.74 10/6/uL (4.0-5.6); WHITE BLOOD CELLS 7.1 10/3/uL (4.5-10.5)
[2016-06-20 07:15] LABS: MANUAL DIFF NO %
[2016-06-20 07:16] LABS: ALBUMIN 2.2 G/DL (3.5-5.0); BUN (BLOOD UREA NITROGEN) 51 MG/DL (6-23); CHLORIDE, SERUM 109 MMOL/L (96-112); CO2 (CARBON DIOXIDE) 20 MMOL/L (24-34); GFR AFRICAN AMERICAN 16 ML/MIN (>=60); GFR NON AFRICAN AMERICAN 14 ML/MIN (>=60); GLUCOSE, SERUM 127 MG/DL (60-99); PHOSPHORUS, SERUM 3.6 MG/DL (2.5-4.5); SODIUM, SERUM 141 MMOL/L (135-148)
[2016-06-20 07:19] LABS: CREATININE 3.22 MG/DL (0.55-1.02); POTASSIUM, SERUM 5.2 MMOL/L (3.5-5.3)
[2016-06-21 05:51] LABS: BASOPHILS 0.2 %; BASOPHILS ABSOLUTE 0.01 10/3/uL (0.0-0.16); EOSINOPHILS 4.2 %; EOSINOPHILS ABSOLUTE 0.27 10/3/uL (0.0-0.53); HEMATOCRIT 24.7 % (36.0-48.0); HEMOGLOBIN 7.9 g/dL (12.0-16.0); IMMATURE GRANULOCYTES 0.5 %; IMMATURE GRANULOCYTES ABSOLUTE 0.03 10/3/uL (0.0-0.11); LYMPHOCYTES 11.8 %; LYMPHOCYTES ABSOLUTE 0.75 10/3/uL (0.67-4.30); MEAN CORPUSCULAR HEMOGLOB 30.3 pg (26.0-34.0); MEAN CORPUSCULAR VOLUME 94.6 fL (80-100); MEAN PLATELET VOLUME 9.8 fL (9.2-13.0); MONOCYTES 8.8 %; MONOCYTES ABSOLUTE 0.56 10/3/uL (0.21-1.20); NEUTROPHILS 74.5 %; NEUTROPHILS ABSOLUTE 4.74 10/3/uL (2.02-8.40); PLATELET COUNT 186 10/3/uL (150-400); RBC DISTRIBUTION WIDTH 15.8 % (12.0-16.0); RED CELL COUNT 2.61 10/6/uL (4.0-5.6); WHITE BLOOD CELLS 6.4 10/3/uL (4.5-10.5)
[2016-06-21 05:52] LABS: ALBUMIN 2.2 G/DL (3.5-5.0); CALCIUM, SERUM 8.3 MG/DL (8.5-10.4); CHLORIDE, SERUM 109 MMOL/L (96-112); CO2 (CARBON DIOXIDE) 23 MMOL/L (24-34); CREATININE 3.22 MG/DL (0.55-1.02); GFR AFRICAN AMERICAN 16 ML/MIN (>=60); GFR NON AFRICAN AMERICAN 14 ML/MIN (>=60); GLUCOSE, SERUM 114 MG/DL (60-99); PHOSPHORUS, SERUM 3.3 MG/DL (2.5-4.5); POTASSIUM, SERUM 4.3 MMOL/L (3.5-5.3); SODIUM, SERUM 143 MMOL/L (135-148)
[2016-06-21 05:53] LABS: MANUAL DIFF NO %
[2016-06-21 05:54] LABS: BUN (BLOOD UREA NITROGEN) 44 MG/DL (6-23)
[2016-06-22 04:46] LABS: BASOPHILS 0.2 %; BASOPHILS ABSOLUTE 0.01 10/3/uL (0.0-0.16); EOSINOPHILS 5.6 %; HEMATOCRIT 24.9 % (36.0-48.0); IMMATURE GRANULOCYTES 0.6 %; IMMATURE GRANULOCYTES ABSOLUTE 0.03 10/3/uL (0.0-0.11); LYMPHOCYTES ABSOLUTE 0.64 10/3/uL (0.67-4.30); MANUAL DIFF NO %; MEAN CORPUS HGB CONC 32.1 g/dL (32.0-36.0); MEAN CORPUSCULAR HEMOGLOB 30.2 pg (26.0-34.0); MEAN PLATELET VOLUME 8.9 fL (9.2-13.0); MONOCYTES 13.5 %; MONOCYTES ABSOLUTE 0.72 10/3/uL (0.21-1.20); NEUTROPHILS 68.1 %; NEUTROPHILS ABSOLUTE 3.63 10/3/uL (2.02-8.40); PLATELET COUNT 204 10/3/uL (150-400); RBC DISTRIBUTION WIDTH 15.8 % (12.0-16.0); RED CELL COUNT 2.65 10/6/uL (4.0-5.6); WHITE BLOOD CELLS 5.3 10/3/uL (4.5-10.5)
[2016-06-22 04:55] LABS: CALCIUM, SERUM 8.4 MG/DL (8.5-10.4); CHLORIDE, SERUM 110 MMOL/L (96-112); CO2 (CARBON DIOXIDE) 23 MMOL/L (24-34); CREATININE 2.91 MG/DL (0.55-1.02); GFR AFRICAN AMERICAN 18 ML/MIN (>=60); GFR NON AFRICAN AMERICAN 15 ML/MIN (>=60); GLUCOSE, SERUM 107 MG/DL (60-99); POTASSIUM, SERUM 4.3 MMOL/L (3.5-5.3); SODIUM, SERUM 143 MMOL/L (135-148)
[2016-06-22 04:59] LABS: BUN (BLOOD UREA NITROGEN) 39 MG/DL (6-23)
[2016-06-23 05:34] LABS: ALBUMIN 2.2 G/DL (3.5-5.0); CALCIUM, SERUM 8.6 MG/DL (8.5-10.4); CHLORIDE, SERUM 112 MMOL/L (96-112); CO2 (CARBON DIOXIDE) 21 MMOL/L (24-34); CREATININE 2.82 MG/DL (0.55-1.02); FERRITIN 118 NG/ML (8-252); GFR AFRICAN AMERICAN 19 ML/MIN (>=60); GFR NON AFRICAN AMERICAN 16 ML/MIN (>=60); GLUCOSE, SERUM 97 MG/DL (60-99); IRON BINDING CAPACITY 282 MCG/DL (225-410); POTASSIUM, SERUM 4.4 MMOL/L (3.5-5.3); SODIUM, SERUM 144 MMOL/L (135-148)
[2016-06-23 05:44] LABS: BUN (BLOOD UREA NITROGEN) 32 MG/DL (6-23); IRON, SERUM 35 MCG/DL (35-150)
[2016-06-23 21:46] LABS: CK-MB 1.3 NG/ML; CPK 39 U/L (0-200); TROPONIN I 0.05 NG/ML (<0.05)
[2016-06-24 10:59] LABS: ALBUMIN 2.2 G/DL (3.5-5.0); BUN (BLOOD UREA NITROGEN) 30 MG/DL (6-23); CALCIUM, SERUM 8.5 MG/DL (8.5-10.4); CHLORIDE, SERUM 113 MMOL/L (96-112); CO2 (CARBON DIOXIDE) 23 MMOL/L (24-34); CREATININE 2.97 MG/DL (0.55-1.02); DIRECT BILIRUBIN 0.2 MG/DL (0.0-0.4); GFR AFRICAN AMERICAN 17 ML/MIN (>=60); GFR NON AFRICAN AMERICAN 15 ML/MIN (>=60); INDIRECT BILIRUBIN(NOT ORDER) 0.2 MG/DL (0.1-0.9); POTASSIUM, SERUM 4.1 MMOL/L (3.5-5.3); SGOT(AST) 18 U/L (5-40); SGPT(ALT) 19 U/L (5-65); SODIUM, SERUM 145 MMOL/L (135-148); TOTAL BILIRUBIN 0.4 MG/DL (0-1.2); TOTAL PROTEIN 6.1 G/DL (6.0-8.5)
[2016-06-24 11:00] LABS: ALKALINE PHOSPHATASE 53 U/L (45-117); GLUCOSE, SERUM 155 MG/DL (60-99)
[2016-06-25 07:20] LABS: BUN (BLOOD UREA NITROGEN) 29 MG/DL (6-23); CALCIUM, SERUM 8.4 MG/DL (8.5-10.4); CHLORIDE, SERUM 110 MMOL/L (96-112); CHOL/HDL RATIO(NOT ORDER) 3.4 (0-5); CHOLESTEROL 161 MG/DL (< 200); CO2 (CARBON DIOXIDE) 26 MMOL/L (24-34); CREATININE 3.09 MG/DL (0.55-1.02); GFR AFRICAN AMERICAN 17 ML/MIN (>=60); GFR NON AFRICAN AMERICAN 14 ML/MIN (>=60); GLUCOSE, SERUM 90 MG/DL (60-99); HDL CHOLESTEROL 48 MG/DL (> 49); LDL CHOLESTEROL 73 MG/DL (< 130); NON-HDL CHOLESTEROL 113 MG/DL (< 160); POTASSIUM, SERUM 3.9 MMOL/L (3.5-5.3); SODIUM, SERUM 144 MMOL/L (135-148); TRIGLYCERIDE 200 MG/DL (< 150)
[2016-06-25 10:03] LABS: CK-MB 1.3 NG/ML; CPK 70 U/L (0-200)
[2016-06-25 10:04] LABS: TROPONIN I 0.06 NG/ML (<0.05)
[2016-06-25 10:54] LABS: BASOPHILS 0.5 %; BASOPHILS ABSOLUTE 0.04 10/3/uL (0.0-0.16); EOSINOPHILS 3.8 %; EOSINOPHILS ABSOLUTE 0.31 10/3/uL (0.0-0.53); HEMATOCRIT 27.5 % (36.0-48.0); HEMOGLOBIN 8.9 g/dL (12.0-16.0); IMMATURE GRANULOCYTES 2.6 %; IMMATURE GRANULOCYTES ABSOLUTE 0.21 10/3/uL (0.0-0.11); LYMPHOCYTES ABSOLUTE 0.89 10/3/uL (0.67-4.30); MANUAL DIFF NO %; MEAN CORPUS HGB CONC 32.4 g/dL (32.0-36.0); MEAN CORPUSCULAR HEMOGLOB 30.8 pg (26.0-34.0); MEAN CORPUSCULAR VOLUME 95.2 fL (80-100); MEAN PLATELET VOLUME 9.9 fL (9.2-13.0); MONOCYTES 16.2 %; MONOCYTES ABSOLUTE 1.31 10/3/uL (0.21-1.20); NEUTROPHILS 65.9 %; NEUTROPHILS ABSOLUTE 5.32 10/3/uL (2.02-8.40); PLATELET COUNT 270 10/3/uL (150-400); RBC DISTRIBUTION WIDTH 16.1 % (12.0-16.0); RED CELL COUNT 2.89 10/6/uL (4.0-5.6); WHITE BLOOD CELLS 8.1 10/3/uL (4.5-10.5)
[2016-06-25 11:02] LABS: ALBUMIN 2.5 G/DL (3.5-5.0); BUN (BLOOD UREA NITROGEN) 29 MG/DL (6-23); CALCIUM, SERUM 9.3 MG/DL (8.5-10.4); CHLORIDE, SERUM 109 MMOL/L (96-112); CREATININE 3.08 MG/DL (0.55-1.02); GFR AFRICAN AMERICAN 17 ML/MIN (>=60); GFR NON AFRICAN AMERICAN 14 ML/MIN (>=60); GLUCOSE, SERUM 150 MG/DL (60-99); PHOSPHORUS, SERUM 2.8 MG/DL (2.5-4.5); POTASSIUM, SERUM 4.4 MMOL/L (3.5-5.3); SODIUM, SERUM 140 MMOL/L (135-148)
[2016-06-25 11:03] LABS: CO2 (CARBON DIOXIDE) 20 MMOL/L (24-34)
[2016-06-26 03:31] LABS: BASOPHILS 0.4 %; BASOPHILS ABSOLUTE 0.04 10/3/uL (0.0-0.16); EOSINOPHILS 2.4 %; EOSINOPHILS ABSOLUTE 0.22 10/3/uL (0.0-0.53); HEMATOCRIT 25.4 % (36.0-48.0); HEMOGLOBIN 8.2 g/dL (12.0-16.0); IMMATURE GRANULOCYTES ABSOLUTE 0.18 10/3/uL (0.0-0.11); LYMPHOCYTES 14.2 %; LYMPHOCYTES ABSOLUTE 1.28 10/3/uL (0.67-4.30); MANUAL DIFF NO %; MEAN CORPUS HGB CONC 32.3 g/dL (32.0-36.0); MEAN CORPUSCULAR HEMOGLOB 30.5 pg (26.0-34.0); MEAN CORPUSCULAR VOLUME 94.4 fL (80-100); MEAN PLATELET VOLUME 8.6 fL (9.2-13.0); MONOCYTES 15.1 %; MONOCYTES ABSOLUTE 1.36 10/3/uL (0.21-1.20); NEUTROPHILS 65.9 %; NEUTROPHILS ABSOLUTE 5.91 10/3/uL (2.02-8.40); PLATELET COUNT 324 10/3/uL (150-400); RBC DISTRIBUTION WIDTH 15.8 % (12.0-16.0); RED CELL COUNT 2.69 10/6/uL (4.0-5.6)
[2016-06-26 03:48] LABS: ALBUMIN 2.5 G/DL (3.5-5.0); BUN (BLOOD UREA NITROGEN) 29 MG/DL (6-23); CALCIUM, SERUM 8.5 MG/DL (8.5-10.4); CHLORIDE, SERUM 110 MMOL/L (96-112); CREATININE 3.23 MG/DL (0.55-1.02); GFR AFRICAN AMERICAN 16 ML/MIN (>=60); GFR NON AFRICAN AMERICAN 14 ML/MIN (>=60); PHOSPHORUS, SERUM 3.1 MG/DL (2.5-4.5); POTASSIUM, SERUM 4.1 MMOL/L (3.5-5.3)
[2016-06-26 03:50] LABS: CO2 (CARBON DIOXIDE) 25 MMOL/L (24-34); GLUCOSE, SERUM 112 MG/DL (60-99); SODIUM, SERUM 147 MMOL/L (135-148); TROPONIN I 0.05 NG/ML (<0.05)
[2016-06-27 06:57] LABS: BASOPHILS 0.7 %; BASOPHILS ABSOLUTE 0.05 10/3/uL (0.0-0.16); EOSINOPHILS 2.5 %; EOSINOPHILS ABSOLUTE 0.19 10/3/uL (0.0-0.53); HEMOGLOBIN 7.1 g/dL (12.0-16.0); IMMATURE GRANULOCYTES ABSOLUTE 0.15 10/3/uL (0.0-0.11); LYMPHOCYTES 16.8 %; LYMPHOCYTES ABSOLUTE 1.26 10/3/uL (0.67-4.30); MEAN CORPUS HGB CONC 32.9 g/dL (32.0-36.0); MEAN CORPUSCULAR HEMOGLOB 31.1 pg (26.0-34.0); MEAN CORPUSCULAR VOLUME 94.7 fL (80-100); MEAN PLATELET VOLUME 8.6 fL (9.2-13.0); MONOCYTES 12.2 %; MONOCYTES ABSOLUTE 0.91 10/3/uL (0.21-1.20); NEUTROPHILS 65.8 %; NEUTROPHILS ABSOLUTE 4.92 10/3/uL (2.02-8.40); PLATELET COUNT 297 10/3/uL (150-400); RBC DISTRIBUTION WIDTH 16.2 % (12.0-16.0); RED CELL COUNT 2.28 10/6/uL (4.0-5.6); WHITE BLOOD CELLS 7.5 10/3/uL (4.5-10.5)
[2016-06-27 06:58] LABS: HEMATOCRIT 21.6 % (36.0-48.0); MANUAL DIFF NO %
[2016-06-27 07:01] LABS: ALBUMIN 2.2 G/DL (3.5-5.0); BUN (BLOOD UREA NITROGEN) 29 MG/DL (6-23); CALCIUM, SERUM 8.7 MG/DL (8.5-10.4); CHLORIDE, SERUM 110 MMOL/L (96-112); CO2 (CARBON DIOXIDE) 27 MMOL/L (24-34); CREATININE 3.24 MG/DL (0.55-1.02); GFR AFRICAN AMERICAN 16 ML/MIN (>=60); GFR NON AFRICAN AMERICAN 14 ML/MIN (>=60); GLUCOSE, SERUM 120 MG/DL (60-99); PHOSPHORUS, SERUM 3.1 MG/DL (2.5-4.5); POTASSIUM, SERUM 4.2 MMOL/L (3.5-5.3); SODIUM, SERUM 145 MMOL/L (135-148); TROPONIN I 0.04 NG/ML (<0.05)
[2016-06-27 17:15] LABS: HEMATOCRIT 25.6 % (36.0-48.0)
[2016-06-27 23:12] LABS: HEMATOCRIT 25.3 % (36.0-48.0); HEMOGLOBIN 7.9 g/dL (12.0-16.0)
[2016-06-28 06:16] LABS: HEMATOCRIT 27.5 % (36.0-48.0); MEAN CORPUS HGB CONC 32.7 g/dL (32.0-36.0); MEAN CORPUSCULAR HEMOGLOB 30.4 pg (26.0-34.0); MEAN CORPUSCULAR VOLUME 92.9 fL (80-100); MEAN PLATELET VOLUME 8.5 fL (9.2-13.0); PLATELET COUNT 314 10/3/uL (150-400); WHITE BLOOD CELLS 7.7 10/3/uL (4.5-10.5)
[2016-06-28 06:17] LABS: MANUAL DIFF YES %; RED CELL COUNT 2.96 10/6/uL (4.0-5.6)
[2016-06-28 06:29] LABS: BUN (BLOOD UREA NITROGEN) 26 MG/DL (6-23); CHLORIDE, SERUM 108 MMOL/L (96-112); CO2 (CARBON DIOXIDE) 25 MMOL/L (24-34); CREATININE 2.84 MG/DL (0.55-1.02); GFR AFRICAN AMERICAN 18 ML/MIN (>=60); GFR NON AFRICAN AMERICAN 16 ML/MIN (>=60); POTASSIUM, SERUM 3.8 MMOL/L (3.5-5.3); SODIUM, SERUM 146 MMOL/L (135-148)
[2016-06-28 06:33] LABS: GLUCOSE, SERUM 95 MG/DL (60-99)
[2016-06-28 21:23] LABS: CPK 84 U/L (0-200)
[2016-06-28 21:28] LABS: CK-MB 1.4 NG/ML
[2016-06-28 21:29] LABS: TROPONIN I 0.07 NG/ML (<0.05)
[2016-06-29 07:21] LABS: BASOPHILS 0.7 %; BASOPHILS ABSOLUTE 0.05 10/3/uL (0.0-0.16); EOSINOPHILS 2.3 %; EOSINOPHILS ABSOLUTE 0.17 10/3/uL (0.0-0.53); HEMATOCRIT 26.2 % (36.0-48.0); HEMOGLOBIN 8.4 g/dL (12.0-16.0); IMMATURE GRANULOCYTES 1.4 %; LYMPHOCYTES 17.6 %; MANUAL DIFF NO %; MEAN CORPUS HGB CONC 32.1 g/dL (32.0-36.0); MEAN CORPUSCULAR HEMOGLOB 29.7 pg (26.0-34.0); MEAN CORPUSCULAR VOLUME 92.6 fL (80-100); MEAN PLATELET VOLUME 8.4 fL (9.2-13.0); MONOCYTES ABSOLUTE 0.74 10/3/uL (0.21-1.20); NEUTROPHILS ABSOLUTE 5.04 10/3/uL (2.02-8.40); NUCLEATED RED BLOOD CELLS 0.2 /100WBC (0-0); PLATELET COUNT 326 10/3/uL (150-400); RBC DISTRIBUTION WIDTH 17.2 % (12.0-16.0); RED CELL COUNT 2.83 10/6/uL (4.0-5.6); WHITE BLOOD CELLS 7.4 10/3/uL (4.5-10.5)
[2016-06-29 07:33] LABS: CALCIUM, SERUM 8.5 MG/DL (8.5-10.4); CHLORIDE, SERUM 112 MMOL/L (96-112); CO2 (CARBON DIOXIDE) 23 MMOL/L (24-34); CREATININE 2.78 MG/DL (0.55-1.02); GFR AFRICAN AMERICAN 19 ML/MIN (>=60); GFR NON AFRICAN AMERICAN 16 ML/MIN (>=60); GLUCOSE, SERUM 107 MG/DL (60-99); POTASSIUM, SERUM 3.9 MMOL/L (3.5-5.3); SODIUM, SERUM 147 MMOL/L (135-148)
[2016-06-29 07:34] LABS: BUN (BLOOD UREA NITROGEN) 22 MG/DL (6-23)
[2016-06-29 12:18] LABS: HEMATOCRIT 26.1 % (36.0-48.0); HEMOGLOBIN 8.5 g/dL (12.0-16.0)
[2016-06-29 20:18] LABS: HEMATOCRIT 25.7 % (36.0-48.0); HEMOGLOBIN 8.3 g/dL (12.0-16.0)
[2016-06-30 06:54] LABS: BASOPHILS 0.5 %; BASOPHILS ABSOLUTE 0.04 10/3/uL (0.0-0.16); EOSINOPHILS ABSOLUTE 0.23 10/3/uL (0.0-0.53); HEMATOCRIT 25.2 % (36.0-48.0); HEMOGLOBIN 8.2 g/dL (12.0-16.0); IMMATURE GRANULOCYTES 0.9 %; IMMATURE GRANULOCYTES ABSOLUTE 0.07 10/3/uL (0.0-0.11); LYMPHOCYTES 9.7 %; LYMPHOCYTES ABSOLUTE 0.73 10/3/uL (0.67-4.30); MANUAL DIFF NO %; MEAN CORPUS HGB CONC 32.5 g/dL (32.0-36.0); MEAN CORPUSCULAR HEMOGLOB 30.8 pg (26.0-34.0); MEAN CORPUSCULAR VOLUME 94.7 fL (80-100); MEAN PLATELET VOLUME 8.4 fL (9.2-13.0); MONOCYTES 13.4 %; MONOCYTES ABSOLUTE 1.01 10/3/uL (0.21-1.20); NEUTROPHILS 72.5 %; NEUTROPHILS ABSOLUTE 5.48 10/3/uL (2.02-8.40); PLATELET COUNT 304 10/3/uL (150-400); RBC DISTRIBUTION WIDTH 17.2 % (12.0-16.0); RED CELL COUNT 2.66 10/6/uL (4.0-5.6); WHITE BLOOD CELLS 7.6 10/3/uL (4.5-10.5)
[2016-06-30 07:01] LABS: INTERNATIONAL NORMAL RATI 1.3 UNITS (-); PROTIME (NOT ORD) 15.9 SEC (12.0-14.5)
[2016-06-30 07:10] LABS: BUN (BLOOD UREA NITROGEN) 20 MG/DL (6-23); CALCIUM, SERUM 8.9 MG/DL (8.5-10.4); CHLORIDE, SERUM 111 MMOL/L (96-112); CO2 (CARBON DIOXIDE) 24 MMOL/L (24-34); CREATININE 2.76 MG/DL (0.55-1.02); GFR AFRICAN AMERICAN 19 ML/MIN (>=60); GFR NON AFRICAN AMERICAN 16 ML/MIN (>=60); GLUCOSE, SERUM 98 MG/DL (60-99); POTASSIUM, SERUM 3.7 MMOL/L (3.5-5.3); SODIUM, SERUM 144 MMOL/L (135-148)
[2016-07-01 08:31] LABS: BASOPHILS 0.7 %; BASOPHILS ABSOLUTE 0.05 10/3/uL (0.0-0.16); EOSINOPHILS 2.7 %; HEMATOCRIT 27.2 % (36.0-48.0); HEMOGLOBIN 8.8 g/dL (12.0-16.0); IMMATURE GRANULOCYTES 0.7 %; IMMATURE GRANULOCYTES ABSOLUTE 0.05 10/3/uL (0.0-0.11); LYMPHOCYTES 13.9 %; LYMPHOCYTES ABSOLUTE 1.02 10/3/uL (0.67-4.30); MANUAL DIFF NO %; MEAN CORPUS HGB CONC 32.4 g/dL (32.0-36.0); MEAN CORPUSCULAR HEMOGLOB 30.7 pg (26.0-34.0); MEAN CORPUSCULAR VOLUME 94.8 fL (80-100); MEAN PLATELET VOLUME 8.5 fL (9.2-13.0); MONOCYTES 8.5 %; MONOCYTES ABSOLUTE 0.62 10/3/uL (0.21-1.20); NEUTROPHILS 73.5 %; NEUTROPHILS ABSOLUTE 5.39 10/3/uL (2.02-8.40); PLATELET COUNT 343 10/3/uL (150-400); RBC DISTRIBUTION WIDTH 16.9 % (12.0-16.0); RED CELL COUNT 2.87 10/6/uL (4.0-5.6); WHITE BLOOD CELLS 7.3 10/3/uL (4.5-10.5)
[2016-07-01] MEDS ORDERED: NORV5 PO (10:28)
[2016-07-01] MEDS ORDERED: IMDUR60 PO (10:29)
[2016-07-01] MEDS ORDERED: TOPXL50 PO (10:30)
[2016-07-01] MEDS ORDERED: HYDRALAZINE100 MG PO (10:31)
[2016-07-01] MEDS ORDERED: NTG150 SL (10:34)
[2016-07-01] MEDS ORDERED: ZITHROMAX500 MG PO (10:34)
[2016-07-01] MEDS ORDERED: MYAMBUTOL400 MG PO (10:36)
[2016-07-01] MEDS ORDERED: RIFADIN 300 MG300 MG PO (10:37)
[2016-09-03] MEDS ORDERED: ZITHROMAX500 MG PO (13:48)
[2016-09-03] MEDS ORDERED: NORV5 PO (13:48)
[2016-09-03] MEDS ORDERED: IMDUR60 PO (13:50)
[2016-09-03] MEDS ORDERED: MYAMBUTOL400 MG PO (13:50)
[2016-09-03] MEDS ORDERED: TOPXL50 PO (13:51)
[2016-09-03] MEDS ORDERED: NEUR100 PO (13:52)
[2016-09-03] MEDS ORDERED: AT10 PO (13:53)
[2016-09-03] MEDS ORDERED: SYN.15 PO (13:54)
[2016-09-03] MEDS ORDERED: METHOC750B PO (13:56)
[2016-09-03] MEDS ORDERED: RIFADIN 300 MG300 MG PO (13:56)
[2016-09-03] MEDS ORDERED: KLONO1 PO (13:57)
[2016-09-03] MEDS ORDERED: HYDRALAZINE100 MG PO (13:57)
[2016-09-03] MEDS ORDERED: SODBICAR10 PO (13:58)
[2016-09-03] MEDS ORDERED: PRILOSEC40 MG PO (13:58)
[2016-09-03] MEDS ORDERED: ULTRAM50 PO (14:00)
[2016-09-03] MEDS ORDERED: FLEX PO (14:00)
[2016-09-03] MEDS ORDERED: CRESTOR10 PO (14:01)
[2016-09-03] MEDS ORDERED: NITROQUICK0.4 MG SL (14:02)
[2016-09-03] MEDS ORDERED: AMITIZA8 MCG PO (14:03)
[2016-09-03] MEDS ORDERED: VITAMIN D2000 UNIT PO (14:04)
[2016-09-03] MEDS ORDERED: MULTIVITAMI1 PO (14:04)
[2016-09-03] MEDS ORDERED: BREO ELLIPTA INH (14:04)
== END 2016-07-01 15:10 | disposition home or self-care (01) | DRG 871 ==
LOC: ER 18:11 → 6NO 20:56
PROVIDERS: Emergency Medicine; Hospitalist; Internal Medicine; Internal Medicine Gastroenterology; Internal Medicine Nephrology; Nurse Practitioner; Nurse Practitioner Family
PROC: 30233S1 Transfusion of Nonautologous Globulin into Peripheral Vein, Percutaneous Approach (ICD-10-PCS; 2016-06-28)
PROC: 0W3P8ZZ Control Bleeding in Gastrointestinal Tract, Via Natural or Artificial Opening Endoscopic (ICD-10-PCS; principal; 2016-06-28 07:45)
PROC: 0DJ08ZZ Inspection of Upper Intestinal Tract, Via Natural or Artificial Opening Endoscopic (ICD-10-PCS; 2016-06-30)
DX: A41.9 Sepsis, unspecified organism (principal); J96.01 Acute respiratory failure with hypoxia; K55.21 Angiodysplasia of colon with hemorrhage; J18.9 Pneumonia, unspecified organism; N18.4 Chronic kidney disease, stage 4 (severe); I13.0 Hypertensive heart and chronic kidney disease with heart failure and stage 1 through stage 4 chronic kidney disease, or unspecified chronic kidney disease; D80.1 Nonfamilial hypogammaglobulinemia; I50.32 Chronic diastolic (congestive) heart failure; A31.0 Pulmonary mycobacterial infection; E66.2 Morbid (severe) obesity with alveolar hypoventilation; D62 Acute posthemorrhagic anemia; J44.1 Chronic obstructive pulmonary disease with (acute) exacerbation; I72.8 Aneurysm of other specified arteries; I16.0 Hypertensive urgency; K57.30 Diverticulosis of large intestine without perforation or abscess without bleeding; E03.9 Hypothyroidism, unspecified; K31.7 Polyp of stomach and duodenum; I49.1 Atrial premature depolarization; G47.33 Obstructive sleep apnea (adult) (pediatric); M19.90 Unspecified osteoarthritis, unspecified site; K21.9 Gastro-esophageal reflux disease without esophagitis; M48.00 Spinal stenosis, site unspecified; Z87.01 Personal history of pneumonia (recurrent); Z87.442 Personal history of urinary calculi; Z68.36 Body mass index [BMI] 36.0-36.9, adult; Z96.651 Presence of right artificial knee joint; Z86.010 Personal history of colon polyps; T36.6X5A Adverse effect of rifampicins, initial encounter; T46.5X5A Adverse effect of other antihypertensive drugs, initial encounter
CPT/HCPCS: 36415; 71010; 71020; 71250; 78278; 80048; 80053; 80061; 80069; 80076; 81001; 82272; 82550; 82553; 82728; 83540; 83550; 83605; 83690; 83735; 83880; 84100; 84145; 84443; 84484; 85014; 85018; 85025; 85610; 85730; 86850; 86900; 86901; 86920; 87040; 87070; 87086; 87205; 87449; 87493; 87493-59; 87804; 93005; 93306; 94640; 94667; 94668; 99284; A9270-GY; A9560; J0360; J0456; J1885; J1940; J2405; P9016

== ENCOUNTER 2016-07-14 16:42 | Inpatient (IN) | payer MEDICARE, BC ==
--- NOTE | ~2016-07-14 | CN ---
Consultation Report [facility] [address] [place]. [address] NAME: ODALIS FAULKNER : 43 STATUS : ADM IN [facility]#: [id number] AGE: 71 ADM/REG DATE : 07/15/16 MR#: [id number] REPORT SERV DATE: 07/16/16 DICTATED BY: RIKY SILVER DATE: 07/16/16 REPORT STATUS : Draft TRANSCRIBED BY: MODL DATE: 07/16/16 ORTHOPEDIC SPINE SURGERY CONSULTATION DATE OF CONSULTATION: 07/16/2016 REASON FOR CONSULTATION: Cervical stenosis, and neck and back pain. HISTORY OF PRESENT ILLNESS: The patient is a 71-year-old, admitted to the Hospitalist Service for concerns of possible drug reaction. The patient also states that she has had about a two-week history of significant neck and lower back pain. She denies any signs of myelopathy including worsening balance, dropping objects, or loss of fine motor skills. She denies any radiculopathy or weakness into the upper or lower extremities. REVIEW OF SYSTEMS: She denies chest pain and shortness of breath. PAST MEDICAL HISTORY: Includes chronic kidney disease and hypothyroidism. FAMILY HISTORY: Noncontributory. HOME MEDICATIONS: Norvasc, Zithromax, Klonopin, ethambutol, fluticasone, Lasix, hydralazine, Atarax, Imdur, Synthroid, Amitiza, Toprol, Centrum, nitroglycerin, Prilosec, rifampin, Crestor, sodium bicarbonate, and Ultram. ALLERGIES: INCLUDE CYMBALTA AND ADHESIVES. PHYSICAL EXAMINATION: GENERAL: The patient is resting comfortably in bed. In no acute distress. PSYCH: Alert and oriented x3. Normal mood and affect. Gait was not tested. VASCULAR: No extremity swelling. SPINE: Some diffuse tenderness over the posterior cervical region. Nothing focal. NEUROLOGIC: Strength in the upper and lower extremities remains intact. No focal deficits. She has negative Conteh's. IMAGING: I have reviewed the imaging studies of her spine. She does have C5-C7 disk disease and stenosis as well as an L1-L2 disk herniation and stenosis. ASSESSMENT: Cervical and lumbar disk disease and stenosis as detailed above. Denies signs of myelopathy. No neurologic deficits. PLAN: The patient asked if she could go home. From my standpoint, there is nothing emergent from a spine standpoint, and I would be fine with her going home. If she continues to have problems and does not see anybody electively, I would be happy to see her in the office as needed, given her medical comorbidities. Certainly, if she did not have to have any Consultation Report [place] [address] [place] [address] NAME: ODALIS FAULKNER : 43 STATUS : ADM IN [facility]#: [id number] AGE: 71 ADM/REG DATE : 07/15/16 MR#: [id number] REPORT SERV DATE: 07/16/16 DICTATED BY: RIKY SILVER DATE: 07/16/16 REPORT STATUS : Draft TRANSCRIBED BY: JEREMIAH DATE: 07/16/16 surgical intervention, it would be in her best interest to avoid surgery; however, if she did start developing signs of myelopathy or progressive weakness, then surgery may be necessary into the future, but not at this point. HEAVENLY/JEREMIAH Riky Silver, / [id number] CC: Bakari Hoskins Jr, MD Richard Peters, M.D.
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
--- NOTE | ~2016-07-14 | DS ---
Discharge Summary [place] [address] [facility] [place]. [address] NAME: ODALIS FAULKNER : 43 STATUS : DIS IN PAT#: [id number] AGE: 71 ADM/REG DATE : 07/15/16 MR#: [id number] REPORT SERV DATE: 07/22/16 DICTATED BY: JR. HOSKINS WILLIAM JOHN DATE: 07/16/16 REPORT STATUS : Draft TRANSCRIBED BY: MODRadha DATE: 07/16/16 ADMISSION DATE: 07/15/2016 DISCHARGE DATE: 07/16/2016 DISCHARGE DIAGNOSES: Include: 1. Severe back and shoulder pain. 2. Severe cervical spine disease on MRI, evaluated by Dr. Silver. 3. History of IgG 2 deficiency. 4. Pulmonary mycobacterium chimaera infection, on medications. 5. Chronic kidney disease, stage 4. 6. Hypothyroidism. OPERATIONS, PROCEDURES, AND TREATMENTS: Include: 1. MRI of the cervical spine showing C5-6 broad disk herniation causing spinal stenosis, deforming anterior cord margin, C6-7 disk osteophyte complex abutting the anterior cord margin and mildly narrowing the central spinal canal, left foraminal stenosis due to spondylosis of C3-4 and C4-C5. 2. Thoracic spine MRI done 07/15/2016, which showed disk herniations at T2-3 and T10-11, possibly contacting the cord with mild canal stenosis at T10-11. There was also mild stenosis at L1-2 due to a combination of disk herniation and facet/ligamentous degenerative hypertrophy. There was mild anterior wedge deformity of T8 and T9, which were chronic without cord deformity at that level. DISCHARGE MEDICATIONS: Include: 1. Norvasc 5 mg orally twice a day. 2. Azithromycin 500 mcg orally daily. 3. Ethambutol 1600 mg every Tuesday, , and Tuesday for one month. 4. Lasix 20 mg orally daily. 5. Neurontin 100 mg every eight hours. 6. Imdur 60 mg orally daily. 7. Synthroid 150 mcg orally daily. 8. Robaxin 750 mg every eight hours. 9. Metoprolol 75 mg twice a day. 10.Prilosec 40 mg orally daily. 11.Rifampin 300 mg twice a day. 12.Sodium bicarbonate 650 mg twice a day. 13.Klonopin 1 mg orally at bedtime. 14.Hydralazine 100 mg every eight hours. 15.Crestor 10 mg orally daily. 16.Amitiza 8 mcg orally daily as needed. 17.Tramadol 50 to 100 every eight p.r.n. 18.Hydroxyzine 10 mg three times a day p.r.n. 19.Breo Ellipta one puff every morning. 20.Multivitamin daily. 21.Nitroglycerin 0.4 mg sublingually as needed. Discharge Summary [address] [address] NAME: ODALIS FAULKNER : 43 STATUS : DIS IN PAT#: [id number] AGE: 71 ADM/REG DATE : 07/15/16 MR#: [id number] REPORT SERV DATE: 07/22/16 DICTATED BY: JR. HOSKINS WILLIAM JOHN DATE: 07/16/16 REPORT STATUS : Draft TRANSCRIBED BY: JEREMIAH DATE: 07/16/16 HOSPITAL COURSE: The patient is a 71-year-old female, recently placed on triple antibiotic ointment for mycobacterium chimaera, presented to the emergency room on 07/14/2016 with complaint of pain around her back and shoulders. The patient was hospitalized in June with persistent multifocal and atypical pneumonia. She underwent bronchoscopy and was found to have mycobacterium chimaera and was started on azithromycin, ethambutol, and rifampin. She had been feeling well until last four to five days when she "tweaked her back" and since that time has had itching underneath the skin and fat layers near the dermis with electrical-like impulses and pain. She was very concerned that this could have been due to a side effect of the medications. She also complained of bilateral hip pain. For admission exam and laboratory, please see Dr. East's dictated history and physical. The patient was admitted to the hospital with severe back and shoulder pain thought likely to be of spinal origin. She underwent an MRI of the cervical and thoracic spine which is detailed above. She was seen in consultation by Neurology who recommended Spine Surgery consultation. She was also seen in consultation by Spine Surgery and placed on Robaxin and Neurontin with symptomatic relief. Dr. Silver of Spine Surgery saw the patient, felt this should be deferred to an outpatient setting in continuing the Robaxin and Neurontin. The patient has an established relationship with Dr. Cooley, and we will request followup with Dr. Cooley. As to the pulmonary mycobacterium chimaera infection, the patient was seen by Dr. Carrasco who reviewed common side effects of these medications, felt her symptoms were not due to a side effect. Her medications were restarted. She had no change in symptoms. Regarding the patient's hypothyroidism, she did have a TSH elevated at 3.97. She was previously on Synthroid 125 mcg orally daily, I increased that to 150 mcg orally daily. The patient will need a followup TSH in four weeks. The patient is to be discharged home today 07/16/2016. She will follow up with Dr. Cooley of Spine Surgery at next available time; Dr. Carrasco of Infectious Disease at his pleasure, and follow up with primary care Dr. Oh Goldman in one week. The patient will also be evaluated for home health for physical therapy. FOLLOWUP ISSUES: 1. Follow up with Lenora Telles, and Susi. 2. Will need a followup thyroid-stimulating hormone drawn in one month which will make it mid August. For discharge exam and laboratory, please see daily progress note. DISCHARGE DIET: Regular. ACTIVITY: As tolerated. This discharge took 30 minutes for the patient's encounter, coordination care, and Discharge Summary [address] [address] NAME: ODALIS FAULKNER : 43 STATUS : DIS IN PAT#: [id number] AGE: 71 ADM/REG DATE : 07/15/16 MR#: [id number] REPORT SERV DATE: 07/22/16 DICTATED BY: JR. HOSKINS WILLIAM JOHN DATE: 07/16/16 REPORT STATUS : Draft TRANSCRIBED BY: JEREMIAH DATE: 07/16/16 documentation. SABINE/JEREMIAH Bakari Hoskins Jr, MD / [id number] CC: Bakari Hoskins Jr, MD Richard Peters, M.D.
--- NOTE | ~2016-07-14 | HP ---
History And Physical [place] [address] [facility] [place]. 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 HISTORY OF PRESENTING ILLNESS: The patient's history was obtained through careful interview with the patient and daughter, coupled with review of [facility] medical records. The patient was hospitalized in 06/2016 with persistent multifocal and atypical pneumonia. The patient underwent bronchoscopy and this helped diagnose the patient with mycobacterium chimaera, for which she was started on a triple antibiotic therapy with azithromycin, ethambutol, and rifampin. She has been feeling well until the last four or five days. She thinks at one point she "tweaked her back," but now she has had progressive severe back discomfort. She mostly describes it as a superficial pain associated with itching underneath her skin and described as almost around the fat layer near her dermis layer. It is like "electrical impulses" that shoot through her skin and muscles. It is felt around her spine, going to her upper back, shoulder blades, the shoulder joint itself, and to the base of her skull. It gets to a 12/10 severity. She has also had aching discomfort within her shoulder joints and her hip joints. The pain in her neck is exacerbated by turning her head. Other complaints have been dry mouth, mucousy stool, but no diarrhea. She describes her stool as "unique" and gelatinous in character. She has had a very poor appetite, but no nausea or vomiting. She has no further respiratory symptoms, no shortness of breath, no cough, no chest pain. REVIEW OF SYSTEMS: Otherwise, a 14-point review of systems was obtained and was negative. PAST MEDICAL HISTORY: 1. Mycobacterium chimaera with multifocal pneumonia, seen by Dr. Kim on 04/2016, finally diagnosed in 06/2016. 2. IgG2 subclass deficiency. 3. Splenic artery aneurysm 1.6 cm. 4. Pneumonia. 5. Hypothyroidism. 6. 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 Crowley. 7. Chronic kidney disease stage 4. Baseline creatinine of 2.5 to 3.0, seen by Dr. Rahman. 8. Irritable bowel syndrome. 9. Transient ischemic attack. History And Physical [address] [address] NAME: ODALIS FAULKNER : 43 STATUS : ADM Vinod PAT#: [id number] AGE: 71 ADM/REG DATE : 07/14/16 MR#: [id number] REPORT SERV DATE: 07/15/16 DICTATED BY: SOTERO DANIEL DATE: 07/14/16 REPORT STATUS : Draft TRANSCRIBED BY: JEREMIAH DATE: 07/14/16 10.Depression and anxiety. 11.Anemia. 12.Urinary tract infection with pyelonephritis. 13.Nephrolithiasis, seen by Dr. Colvin. 14.Mitral valve prolapse. 15.Elevated cholesterol. 16.Hypertension. 17.Spinal stenosis. PAST SURGICAL HISTORY: 1. Appendectomy. 2. Cholecystectomy. 3. Hysterectomy with oophorectomy. 4. Gastric bypass surgery. 5. Arterial venous fistula placement in the left arm with reversal. 6. Left parathyroidectomy. 7. Bilateral knee operations. ALLERGIES: MORPHINE, ADHESIVE, AND CYMBALTA. SOCIAL HISTORY: Quit smoking remotely. Quit alcohol, but used to just drink socially. Became a in 09/2015. Lives alone. 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 She has two daughters, one lives locally, one lives in [place]. FAMILY HISTORY: Heart disease. CURRENT MEDICATIONS: Include Norvasc 5 mg p.o. b.i.d.; azithromycin 500 mg p.o. daily; Klonopin 1 mg p.o. q.h.s.; ethambutol 1600 mg on Tuesday, , and Tuesday; Breo Ellipta inhaled every morning; Lasix 20 mg p.o. daily; hydralazine 100 mg p.o. t.i.d.; Atarax 10 mg p.o. t.i.d. p.r.n.; isosorbide mononitrate 60 mg p.o. daily; levothyroxine 125 mcg daily; Amitiza 8 mcg p.o. daily as needed; Toprol-XL 75 mg p.o. b.i.d.; multivitamin; nitroglycerin; Prilosec 40 mg p.o. daily; rifampin 300 mg p.o. b.i.d.; Crestor 10 mg p.o. daily; sodium bicarbonate 650 mg p.o. b.i.d.; tramadol p.r.n. PHYSICAL EXAMINATION: VITAL SIGNS: Temperature 98.6, pulse 86, blood pressure 150/69, respiratory rate 16, and O2 saturation 95% on room air. GENERAL: Pleasant, cooperative female with what she describes distress from her pain complaint. HEENT: Pupils equal, round, and reactive to light. No conjunctival pallor. No scleral icterus. Nares are patent. Oropharynx is clear of obstruction. Moist mucous membranes. NECK: Trachea midline. No thyromegaly. LYMPH: No cervical lymphadenopathy. No supraclavicular lymphadenopathy. RESPIRATORY: Clear to auscultation at bases. No wheezes, no rales, no rhonchi. Normal respiratory effort. CARDIOVASCULAR: Regular rate and rhythm. No murmurs, rubs, or gallops. No extremity edema is appreciated. History And Physical [address] [address] NAME: ODALIS FAULKNER : 43 STATUS : ADM Vinod PAT#: [id number] AGE: 71 ADM/REG DATE : 07/14/16 MR#: [id number] REPORT SERV DATE: 07/15/16 DICTATED BY: SOTERO DANIEL DATE: 07/14/16 REPORT STATUS : Draft TRANSCRIBED BY: JEREMIAH DATE: 07/14/16 ABDOMEN: Soft, nontender, nondistended. Normal bowel sounds auscultated throughout. No hepatosplenomegaly. DERMATOLOGICAL: Warm and dry extremities. No pallor, no cyanosis. PSYCHIATRIC: Normal affect. Good mood. Alert and oriented x3. BACK: The patient has no midline tenderness. There is no rash, discoloration, or any abnormality at all on examination of the area in which she hurts around her shoulder blades, shoulders, midline back, and neck. LABORATORY DATA: White blood cell count 11.6, hemoglobin 10, hematocrit 31, platelets 303. Sodium 141, potassium 3.7, chloride 105, bicarb 25, BUN 21, creatinine 2.87, glucose 117. CPK normal. Lipase 282. Total bilirubin 1.6. Urinalysis shows 3 white blood cells, small leukocyte esterase, 13 red blood cells, 3 hyaline casts. STUDIES: EKG by my own evaluation shows sinus rhythm, no major abnormalities. ASSESSMENT AND PLAN: 1. Severe back and neck pain and shoulder and hip arthritis. I would like to begin evaluation with an MRI of the cervical and thoracic spine. The family is most concerned about possible drug reaction, but when I review the antibiotics that she is on, they do not seem to be directly related to the symptoms the patient is describing, although it is always possible? Ethambutol is associated with causes of neuritis and itching, but no other classic side effects can be identified right now. 2. Azithromycin can be associated with elevated CPK and itching. 3. Rifampin can cause severe myalgias, itching, and weakness. 4. Also concerned about use of t.i.d. hydralazine and the possibility of a drug-induced lupus? Would like to check an LENO. I would like to consult Infectious Disease, as they may have more experience working with the antibiotics the patient is on and the family almost feels like she should be taken off these antibiotics because of these symptoms. I would also like to check an ESR to rule out PMR since the patient has specifically shoulder and hip pain. 5. Mycobacterium chimaera. Consult Pulmonary, Dr. Kim. 6. Chronic kidney disease stage 4. KPL/MODL Sotero Daniel M.D. / [id number] CC: Bakari Hoskins Jr, MD Richard Peters, M.D. Pravin Rahman M.D. Wesley Kim M.D.
[~2016-07-14 16:42] MED LIST changes: +CO Q-1050 MG PO; +GARLIC 1000 MG PO; +HYDRALAZINE100 MG PO; +IMDUR60 PO; +MONODOX100 MG PO; +MYAMBUTOL400 MG PO; +NORV5 PO; +NTG150 SL; +P20 PO; +PHENERGAN W/CODEINE PO; +PHILLIP COLON HEALTH PO; +RIFADIN 300 MG300 MG PO; +TOPXL50 PO; +ZINC 50MG OTC PO; +ZITHROMAX500 MG PO; +[UNRECOGNIZED DRUG - OTHER] PO; +[UNRECOGNIZED DRUG - OTHER] PO
[2016-07-14 17:02] LABS: BASOPHILS 0.3 %; BASOPHILS ABSOLUTE 0.03 10/3/uL (0.0-0.16); EOSINOPHILS 0.4 %; EOSINOPHILS ABSOLUTE 0.05 10/3/uL (0.0-0.53); HEMATOCRIT 30.8 % (36.0-48.0); IMMATURE GRANULOCYTES 0.3 %; IMMATURE GRANULOCYTES ABSOLUTE 0.04 10/3/uL (0.0-0.11); LYMPHOCYTES 8.2 %; LYMPHOCYTES ABSOLUTE 0.95 10/3/uL (0.67-4.30); MANUAL DIFF NO %; MEAN CORPUS HGB CONC 32.5 g/dL (32.0-36.0); MEAN CORPUSCULAR HEMOGLOB 30.6 pg (26.0-34.0); MEAN CORPUSCULAR VOLUME 94.2 fL (80-100); MEAN PLATELET VOLUME 9.3 fL (9.2-13.0); MONOCYTES 14.9 %; MONOCYTES ABSOLUTE 1.73 10/3/uL (0.21-1.20); NEUTROPHILS 75.9 %; NEUTROPHILS ABSOLUTE 8.82 10/3/uL (2.02-8.40); PLATELET COUNT 303 10/3/uL (150-400); RBC DISTRIBUTION WIDTH 15.6 % (12.0-16.0); RED CELL COUNT 3.27 10/6/uL (4.0-5.6); WHITE BLOOD CELLS 11.6 10/3/uL (4.5-10.5)
[2016-07-14 17:16] LABS: BUN (BLOOD UREA NITROGEN) 21 MG/DL (6-23); CALCIUM, SERUM 9.7 MG/DL (8.5-10.4); CHLORIDE, SERUM 105 MMOL/L (96-112); CO2 (CARBON DIOXIDE) 25 MMOL/L (24-34); CPK (IF ELEVATED MB BANDS) 46 U/L (0-200); CREATININE 2.87 MG/DL (0.55-1.02); GFR AFRICAN AMERICAN 18 ML/MIN (>=60); GFR NON AFRICAN AMERICAN 16 ML/MIN (>=60); GLUCOSE, SERUM 117 MG/DL (60-99); POTASSIUM, SERUM 3.7 MMOL/L (3.5-5.3); SGOT(AST) 25 U/L (5-40); SGPT(ALT) 29 U/L (5-65); SODIUM, SERUM 141 MMOL/L (135-148)
[2016-07-14 17:17] LABS: A/G RATIO 0.7 (0.7-1.9); ALBUMIN 3.1 G/DL (3.5-5.0); ALKALINE PHOSPHATASE 108 U/L (45-117); GLOBULIN 4.7 G/DL (2.5-4.1); TOTAL BILIRUBIN 1.6 MG/DL (0-1.2); TOTAL PROTEIN 7.8 G/DL (6.0-8.5)
[2016-07-14 17:25] LABS: ASCORBIC ACID (UR NOT ORDER) NEG (NEG); BILIRUBIN, URINE SMALL (NEG); ER URINALYSIS TAT 0 Hrs 29 Mins; KETONE, URINE NEGATIVE (NEG); LEUKOCYTE ESTERASE(NOT OR NEG (NEG); NITRITE (URINE) NEG (NEG); WBC (NOT ORDERED) (RFLEX) 3 (0-5)
[2016-07-14] MEDS ORDERED: HYDRALAZINE100 MG PO (18:04)
[2016-07-15 05:37] LABS: BASOPHILS 0.3 %; BASOPHILS ABSOLUTE 0.03 10/3/uL (0.0-0.16); EOSINOPHILS 0.8 %; EOSINOPHILS ABSOLUTE 0.08 10/3/uL (0.0-0.53); HEMATOCRIT 31.2 % (36.0-48.0); HEMOGLOBIN 9.9 g/dL (12.0-16.0); IMMATURE GRANULOCYTES 0.4 %; IMMATURE GRANULOCYTES ABSOLUTE 0.04 10/3/uL (0.0-0.11); LYMPHOCYTES 11.1 %; LYMPHOCYTES ABSOLUTE 1.13 10/3/uL (0.67-4.30); MANUAL DIFF NO %; MEAN CORPUS HGB CONC 31.7 g/dL (32.0-36.0); MEAN CORPUSCULAR HEMOGLOB 30.6 pg (26.0-34.0); MEAN CORPUSCULAR VOLUME 96.3 fL (80-100); MEAN PLATELET VOLUME 9.2 fL (9.2-13.0); MONOCYTES 14.5 %; MONOCYTES ABSOLUTE 1.48 10/3/uL (0.21-1.20); NEUTROPHILS 72.9 %; NEUTROPHILS ABSOLUTE 7.42 10/3/uL (2.02-8.40); PLATELET COUNT 236 10/3/uL (150-400); RBC DISTRIBUTION WIDTH 15.4 % (12.0-16.0); RED CELL COUNT 3.24 10/6/uL (4.0-5.6); WHITE BLOOD CELLS 10.2 10/3/uL (4.5-10.5)
[2016-07-15 05:38] LABS: INTERNATIONAL NORMAL RATI 1.3 UNITS (-); PARTIAL THROMBO TIME 35.5 SEC (22.5-37.2); PROTIME (NOT ORD) 16.4 SEC (12.0-14.5)
[2016-07-15 05:48] LABS: A/G RATIO 0.5 (0.7-1.9); ALBUMIN 2.5 G/DL (3.5-5.0); ALKALINE PHOSPHATASE 100 U/L (45-117); BUN (BLOOD UREA NITROGEN) 21 MG/DL (6-23); CALCIUM, SERUM 9.4 MG/DL (8.5-10.4); CHLORIDE, SERUM 107 MMOL/L (96-112); CO2 (CARBON DIOXIDE) 23 MMOL/L (24-34); CREATININE 2.81 MG/DL (0.55-1.02); GFR AFRICAN AMERICAN 19 ML/MIN (>=60); GFR NON AFRICAN AMERICAN 16 ML/MIN (>=60); GLOBULIN 4.6 G/DL (2.5-4.1); POTASSIUM, SERUM 3.9 MMOL/L (3.5-5.3); SGOT(AST) 23 U/L (5-40); SGPT(ALT) 24 U/L (5-65); SODIUM, SERUM 142 MMOL/L (135-148); TOTAL PROTEIN 7.1 G/DL (6.0-8.5)
[2016-07-15 05:51] LABS: CK-MB 0.8 NG/ML; CPK 37 U/L (0-200); GLUCOSE, SERUM 93 MG/DL (60-99); TOTAL BILIRUBIN 0.7 MG/DL (0-1.2)
[2016-07-15 06:35] LABS: PROCALCITONIN 0.19 ng/mL (<0.5)
[2016-07-15 06:54] LABS: SED RATE 114 MM/HR (0-20)
[2016-07-16 04:15] LABS: BASOPHILS 0.2 %; BASOPHILS ABSOLUTE 0.02 10/3/uL (0.0-0.16); EOSINOPHILS 2.2 %; HEMOGLOBIN 8.8 g/dL (12.0-16.0); IMMATURE GRANULOCYTES 0.3 %; IMMATURE GRANULOCYTES ABSOLUTE 0.03 10/3/uL (0.0-0.11); LYMPHOCYTES 9.3 %; LYMPHOCYTES ABSOLUTE 0.84 10/3/uL (0.67-4.30); MEAN CORPUS HGB CONC 31.8 g/dL (32.0-36.0); MEAN CORPUSCULAR VOLUME 94.5 fL (80-100); MEAN PLATELET VOLUME 9.3 fL (9.2-13.0); MONOCYTES 11.9 %; MONOCYTES ABSOLUTE 1.08 10/3/uL (0.21-1.20); NEUTROPHILS 76.1 %; NEUTROPHILS ABSOLUTE 6.89 10/3/uL (2.02-8.40); PLATELET COUNT 230 10/3/uL (150-400); RBC DISTRIBUTION WIDTH 15.4 % (12.0-16.0); RED CELL COUNT 2.93 10/6/uL (4.0-5.6); WHITE BLOOD CELLS 9.1 10/3/uL (4.5-10.5)
[2016-07-16 04:19] LABS: HEMATOCRIT 27.7 % (36.0-48.0); MANUAL DIFF NO %
[2016-07-16 04:30] LABS: CALCIUM, SERUM 8.6 MG/DL (8.5-10.4); CHLORIDE, SERUM 108 MMOL/L (96-112); CO2 (CARBON DIOXIDE) 25 MMOL/L (24-34); CREATININE 3.03 MG/DL (0.55-1.02); GFR AFRICAN AMERICAN 17 ML/MIN (>=60); GFR NON AFRICAN AMERICAN 15 ML/MIN (>=60); GLUCOSE, SERUM 91 MG/DL (60-99); POTASSIUM, SERUM 3.7 MMOL/L (3.5-5.3); SODIUM, SERUM 142 MMOL/L (135-148)
[2016-07-16 04:31] LABS: BUN (BLOOD UREA NITROGEN) 27 MG/DL (6-23)
[2016-07-16] MEDS ORDERED: NEUR100 PO (10:46)
[2016-07-16] MEDS ORDERED: SYN.15 PO (10:47)
[2016-07-16] MEDS ORDERED: METHOC750B PO (10:47)
[2016-07-16 11:55] LABS: ANA PATTERN CENTROMERE
[2016-09-03] MEDS ORDERED: NORV5 PO (13:48)
[2016-09-03] MEDS ORDERED: ZITHROMAX500 MG PO (13:48)
[2016-09-03] MEDS ORDERED: MYAMBUTOL400 MG PO (13:50)
[2016-09-03] MEDS ORDERED: IMDUR60 PO (13:50)
[2016-09-03] MEDS ORDERED: TOPXL50 PO (13:51)
[2016-09-03] MEDS ORDERED: NEUR100 PO (13:52)
[2016-09-03] MEDS ORDERED: AT10 PO (13:53)
[2016-09-03] MEDS ORDERED: SYN.15 PO (13:54)
[2016-09-03] MEDS ORDERED: METHOC750B PO (13:56)
[2016-09-03] MEDS ORDERED: RIFADIN 300 MG300 MG PO (13:56)
[2016-09-03] MEDS ORDERED: HYDRALAZINE100 MG PO (13:57)
[2016-09-03] MEDS ORDERED: KLONO1 PO (13:57)
[2016-09-03] MEDS ORDERED: PRILOSEC40 MG PO (13:58)
[2016-09-03] MEDS ORDERED: SODBICAR10 PO (13:58)
[2016-09-03] MEDS ORDERED: ULTRAM50 PO (14:00)
[2016-09-03] MEDS ORDERED: FLEX PO (14:00)
[2016-09-03] MEDS ORDERED: CRESTOR10 PO (14:01)
[2016-09-03] MEDS ORDERED: NITROQUICK0.4 MG SL (14:02)
[2016-09-03] MEDS ORDERED: AMITIZA8 MCG PO (14:03)
[2016-09-03] MEDS ORDERED: BREO ELLIPTA INH (14:04)
[2016-09-03] MEDS ORDERED: VITAMIN D2000 UNIT PO (14:04)
[2016-09-03] MEDS ORDERED: MULTIVITAMI1 PO (14:04)
== END 2016-07-16 16:17 | disposition home or self-care (01) | DRG 552 ==
LOC: ER 16:42 → CDU1 18:56
PROVIDERS: Hospitalist; Internal Medicine
DX: M48.02 Spinal stenosis, cervical region (principal); N18.4 Chronic kidney disease, stage 4 (severe); B96.89 Other specified bacterial agents as the cause of diseases classified elsewhere; E03.9 Hypothyroidism, unspecified; Z87.11 Personal history of peptic ulcer disease; M50.20 Other cervical disc displacement, unspecified cervical region; M16.0 Bilateral primary osteoarthritis of hip; Z88.8 Allergy status to other drugs, medicaments and biological substances; Z91.048 Other nonmedicinal substance allergy status
CPT/HCPCS: 72141; 72146; 80048; 80053; 81001; 82550; 82553; 83605; 83690; 83735; 84132; 84145; 84443; 85025; 85610; 85652; 85730; 86039; 86140; 93005; 94640; 96374; 99284; A9270-GY; J2405